=== PATIENT | female | born 1990 | race Caucasian/White ===

== ENCOUNTER 2017-11-23 11:55 | Emergency (ER) | payer OTHER ==
[2017-11-23 12:49] LABS: HEMATOCRIT 37.3 % (36.0-47.0); HEMOGLOBIN 12.9 g/dl (12.0-16.0); MEAN CORPUSCULAR HEMOGLOBIN 30.5 pg (27.0-33.0); MEAN CORPUSCULAR HGB CONC 34.6 g/dl (32.0-36.5); MEAN CORPUSCULAR VOLUME 88.2 fl (80.0-96.0); PLATELET COUNT, AUTOMATED 247 10^3/uL (150-450); RED BLOOD COUNT 4.23 10^6/uL (4.00-5.40); RED CELL DISTRIBUTION WIDTH 12.4 % (11.5-14.5); WHITE BLOOD COUNT 6.6 10^3/uL (4.0-10.0)
[2017-11-23 12:54] LABS: KETONE, URINE AUTO RFX NEGATIVE (NEGATIVE); LEUKOCYTE ESTERASE UR AUTO RFX NEGATIVE (NEGATIVE); MUCUS, URINE RFX LARGE (NEGATIVE); NITRITE, URINE AUTO RFX NEGATIVE (NEGATIVE); RBC, URINE AUTO RFX 0 /HPF (0-3); SPECIFIC GRAVITY UR AUTO RFX 1.018 (1.002-1.035); SQUAM EPITHELIAL CELL UR AURFX 2 /HPF (0-6); WBC, URINE AUTO RFX 2 /HPF (0-3)
[2017-11-23 13:13] LABS: ALBUMIN 3.8 GM/DL (3.2-5.2); ALBUMIN/GLOBULIN RATIO 1.09 (1.00-1.93); ALKALINE PHOSPHATASE 59 U/L (45-117); ALT/SGPT 28 U/L (12-78); AST/SGOT 19 U/L (7-37); BILIRUBIN,DIRECT 0.1 MG/DL (0.0-0.2); BILIRUBIN,TOTAL 0.4 MG/DL (0.2-1.0); HCG, SERUM QUANTITATIVE < 1.0 MIU/ML; TOTAL PROTEIN 7.3 GM/DL (6.4-8.2)
== END 2017-11-23 13:41 | disposition home or self-care (01) ==
LOC: M ED 11:55
DX: R10.2 Pelvic and perineal pain (principal); R35.0 Frequency of micturition; E28.2 Polycystic ovarian syndrome
CPT/HCPCS: 80076

== ENCOUNTER 2018-01-10 09:48 | Emergency (ER) | payer OTHER ==
[2018-01-10] MEDS: METOCLOPRAMIDE INJ 10MG/2ML VIAL (J2765) IV (10:31)
[2018-01-10] MEDS: NS 1,000 ML IV (10:31)
[2018-01-10 10:43] LABS: BASO % 0.4 % (0.0-1.0); EOS # 0.1 10^3/uL (0.0-0.50); EOS % 1.7 % (0.0-3.0); HEMATOCRIT 37.9 % (36.0-47.0); HEMOGLOBIN 12.7 g/dl (12.0-16.0); IMMATURE GRANULOCYTE % 0.4 % (0-3.0); LYMPH # 1.7 10^3/uL (1.5-6.5); LYMPH % 33.4 % (24.0-44.0); MEAN CORPUSCULAR HGB CONC 33.5 g/dl (32.0-36.5); MEAN CORPUSCULAR VOLUME 89.6 fl (80.0-96.0); MONO # 0.3 10^3/uL (0.0-0.8); NEUTROPHILS % 58.1 % (36.0-66.0); PLATELET COUNT, AUTOMATED 292 10^3/uL (150-450); RED BLOOD COUNT 4.23 10^6/uL (4.00-5.40); RED CELL DISTRIBUTION WIDTH 12.9 % (11.5-14.5); WHITE BLOOD COUNT 5.2 10^3/uL (4.0-10.0)
[2018-01-10 11:04] LABS: CONTROL LINE HCG INT CTR LINE PRESENT; HCG, SERUM QUALITATIVE NEGATIVE (NEGATIVE)
[2018-01-10 11:11] LABS: ALBUMIN 3.7 GM/DL (3.2-5.2); ALBUMIN/GLOBULIN RATIO 1.06 (1.00-1.93); ALKALINE PHOSPHATASE 64 U/L (45-117); ALT/SGPT 20 U/L (12-78); AMYLASE 43 U/L (25-115); ANION GAP 4 MEQ/L (8-16); AST/SGOT 12 U/L (7-37); BILIRUBIN,DIRECT 0.1 MG/DL (0.0-0.2); BILIRUBIN,TOTAL 0.3 MG/DL (0.2-1.0); BLOOD UREA NITROGEN 9 MG/DL (7-18); CALCIUM LEVEL 9.1 MG/DL (8.5-10.1); CARBON DIOXIDE LEVEL 30 MEQ/L (21-32); CHLORIDE LEVEL 107 MEQ/L (98-107); CREATININE FOR GFR 0.68 MG/DL (0.55-1.30); GLOMERULAR FILTRATION RATE > 60.0 (>60); GLUCOSE, FASTING 85 MG/DL (70-100); LIPASE 176 U/L (73-393); POTASSIUM SERUM 3.8 MEQ/L (3.5-5.1); SODIUM LEVEL 141 MEQ/L (136-145); TOTAL PROTEIN 7.2 GM/DL (6.4-8.2)
[2018-01-10 11:17] LABS: LACTIC ACID SEPSIS PROTOCOL 0.7 MMOL/L (0.4-2.0)
[2018-01-10 11:18] LABS: BILIRUBIN, URINE MANUAL OBSCURED (NEGATIVE); GLUCOSE, URINE (UA) MANUAL OBSCURED mg/dL (NEGATIVE); KETONE, URINE MANUAL OBSCURED mg/dL (NEGATIVE); NITRITE, URINE MANUAL RFX OBSCURED (NEGATIVE); PROTEIN, URINE MANUAL REFLEX OBSCURED mg/dL (NEGATIVE); SP GRAVITY,URINE MANUAL REFLEX 1.042 (1.002-1.035); UROBILINOGEN, URINE MANUAL OBSCURED mg/dl (NORMAL)
[2018-01-10 11:19] LABS: BACTERIA, URINE SMALL AMOUNT; BLOOD URINE MANUAL RFX OBSCURED (NEGATIVE); HYALINE CAST, URINE NONE SEEN /lpf (0-1); MICROSCOPIC EXAM PERFORMED; MICROSCOPIC INDICATED? RFX YES (NO); MUCUS, URINE MOD AMOUNT (NEGATIVE); RBC, URINE TNTC /hpf (0-3); SQUAMOUS EPITHELIAL CELL URINE LARGE AMOUNT /hpf (SMALL AMT); WBC, URINE MAN RFX TNTC /hpf (0-3)
== END 2018-01-10 11:32 | disposition left against medical advice (07) ==
LOC: M ED 09:48
DX: R10.9 Unspecified abdominal pain (principal); R11.2 Nausea with vomiting, unspecified; K59.00 Constipation, unspecified; E28.2 Polycystic ovarian syndrome; N92.6 Irregular menstruation, unspecified; Z98.0 Intestinal bypass and anastomosis status
CPT/HCPCS: J2765

== ENCOUNTER → 2018-02-21 | Outpatient (REF) | payer OTHER ==
[2018-02-22 12:23] LABS: APPEARANCE, URINE CLOUDY (CLEAR); BACTERIA, URINE AUTO 2+ (NEGATIVE); BILIRUBIN, URINE AUTO NEGATIVE (NEGATIVE); BLOOD, URINE BLOOD NEGATIVE (NEGATIVE); COLOR, URINE YELLOW (YELLOW); GLUCOSE, URINE (UA) AUTO NEGATIVE (NEGATIVE); KETONE, URINE AUTO NEGATIVE (NEGATIVE); LEUKOCYTE ESTERASE, URINE AUTO NEGATIVE (NEGATIVE); MUCUS, URINE MODERATE (NEGATIVE); NITRITE, URINE AUTO NEGATIVE (NEGATIVE); PROTEIN, URINE AUTO NEGATIVE (NEGATIVE); RBC, URINE AUTO 2 /HPF (0-3); SQUAMOUS EPITHELIAL CELL UR AU 9 /HPF (0-6); UROBILINOGEN, URINE AUTO 0.2 mg/dL (0.0-2.0); WBC, URINE AUTO 5 /HPF (0-3)
== END ==
LOC: M LAB REF 11:29
DX: Z32.02 Encounter for pregnancy test, result negative (principal)
CPT/HCPCS: 81001

== ENCOUNTER → 2018-03-19 | Outpatient (REF) | payer OTHER | LOC: M SFHCLERA 14:10 | DX: R30.0 Dysuria (principal) ==

== ENCOUNTER 2018-04-27 11:25 | Emergency (ER) | payer OTHER ==
[2018-04-27] MEDS: ASPIRIN 81 MG CHEW TABLET PO (12:39)
[2018-04-27 13:26] LABS: BASO % 0.6 % (0.0-1.0); EOS # 0.1 10^3/uL (0.0-0.50); EOS % 2.4 % (0.0-3.0); HEMATOCRIT 32.8 % (36.0-47.0); HEMOGLOBIN 11.6 g/dl (12.0-15.5); MEAN CORPUSCULAR HEMOGLOBIN 31.2 pg (27.0-33.0); MEAN CORPUSCULAR HGB CONC 35.4 g/dl (32.0-36.5); MEAN CORPUSCULAR VOLUME 88.2 fl (80.0-96.0); MONO # 0.4 10^3/uL (0.0-0.8); MONO % 8.4 % (0.0-5.0); NEUTROPHILS # 2.2 10^3/uL (1.8-7.7); NEUTROPHILS % 46.6 % (36.0-66.0); PLATELET COUNT, AUTOMATED 222 10^3/uL (150-450); RED BLOOD COUNT 3.72 10^6/uL (4.00-5.40); RED CELL DISTRIBUTION WIDTH 11.5 % (11.5-14.5); WHITE BLOOD COUNT 4.7 10^3/uL (4.0-10.0)
[2018-04-27 13:37] LABS: INR 1.04; PROTHROMBIN TIME 13.7 SECONDS (12.4-14.5)
[2018-04-27 13:38] LABS: PARTIAL THROMBOPLASTIN TIME 29.2 SECONDS (26.8-37.9)
[2018-04-27 14:00] LABS: CONTROL LINE HCG INT CTR LINE PRESENT; HCG, SERUM QUALITATIVE NEGATIVE (NEGATIVE)
[2018-04-27 14:04] LABS: ALBUMIN 3.5 GM/DL (3.2-5.2); ALBUMIN/GLOBULIN RATIO 1.03 (1.00-1.93); ALKALINE PHOSPHATASE 55 U/L (45-117); ALT/SGPT 19 U/L (12-78); ANION GAP 9 MEQ/L (8-16); AST/SGOT 12 U/L (7-37); BILIRUBIN,DIRECT 0.1 MG/DL (0.0-0.2); BILIRUBIN,TOTAL 0.4 MG/DL (0.2-1.0); BLOOD UREA NITROGEN 11 MG/DL (7-18); CALCIUM LEVEL 8.3 MG/DL (8.5-10.1); CARBON DIOXIDE LEVEL 23 MEQ/L (21-32); CHLORIDE LEVEL 110 MEQ/L (98-107); CPK CREATINE PHOSPHOKINASE 39 U/L (26-192); CREATININE FOR GFR 0.57 MG/DL (0.55-1.30); FREE T4 1.08 NG/DL (0.76-1.46); GLOMERULAR FILTRATION RATE > 60.0 (>60); GLUCOSE, FASTING 85 MG/DL (70-100); POTASSIUM SERUM 3.7 MEQ/L (3.5-5.1); SODIUM LEVEL 142 MEQ/L (136-145); TOTAL PROTEIN 6.9 GM/DL (6.4-8.2); TROPONIN I < 0.02 NG/ML (< 0.10)
[2018-04-27 14:10] LABS: CK-MB VALUE MASS < 1.0 NG/ML (<3.6); MB/CK RELATIVE INDEX 2.56 (< OR =4); THYROID STIMULATING HORMONE 0.905 uIU/ML (0.358-3.740)
[2018-04-27] MEDS ORDERED: ISOVUE-370 76% 100ML VIAL (Q9967) As Ordered (14:38)
[2018-04-27 15:11] LABS: D-DIMER QUANT 395.9 ng/ml (<500)
== END 2018-04-27 16:20 | disposition left against medical advice (07) ==
LOC: M ED 11:25
DX: R07.9 Chest pain, unspecified (principal); R00.1 Bradycardia, unspecified; I10 Essential (primary) hypertension; K25.9 Gastric ulcer, unspecified as acute or chronic, without hemorrhage or perforation; E28.2 Polycystic ovarian syndrome; Z98.84 Bariatric surgery status; Z79.899 Other long term (current) drug therapy; Z88.5 Allergy status to narcotic agent; Z53.21 Procedure and treatment not carried out due to patient leaving prior to being seen by health care provider
CPT/HCPCS: 71046

== ENCOUNTER → 2018-05-02 | Outpatient (CLI) | payer OTHER ==
[~2018-05-02] MED LIST: ISOVUE-370 76% 100ML VIAL (Q9967) As Ordered; LIDOCAINE 1% MDV 20ML VIAL As Ordered
== END ==
LOC: M RAD 17:16
DX: R19.07 Generalized intra-abdominal and pelvic swelling, mass and lump (principal)
CPT/HCPCS: Q9967

== ENCOUNTER 2018-05-04 13:23 | Inpatient (IN) | payer OTHER ==
[~2018-05-04 13:23] MED LIST changes: +BISACODYL 10 MG SUPP PR; -ISOVUE-370 76% 100ML VIAL (Q9967) As Ordered; -LIDOCAINE 1% MDV 20ML VIAL As Ordered; +ONDANSETRON 4MG/2ML VIAL (J2405) IV
[2018-05-04] MEDS ORDERED: ISOVUE-370 76% 100ML VIAL (Q9967) As Ordered (14:14)
[2018-05-04] MEDS: KCL 20MEQ IN D5/NS 1000ML 1,000 ML IV (14:41)
[2018-05-04 15:28] LABS: BASO % 0.6 % (0.0-1.0); EOS # 0.1 10^3/uL (0.0-0.50); EOS % 1.6 % (0.0-3.0); HEMATOCRIT 35.4 % (36.0-47.0); IMMATURE GRANULOCYTE % 0.2 % (0-3.0); LYMPH # 2.3 10^3/uL (1.5-6.5); LYMPH % 45.1 % (24.0-44.0); MEAN CORPUSCULAR HEMOGLOBIN 30.8 pg (27.0-33.0); MEAN CORPUSCULAR HGB CONC 33.9 g/dl (32.0-36.5); MONO # 0.3 10^3/uL (0.0-0.8); MONO % 6.7 % (0.0-5.0); NEUTROPHILS # 2.3 10^3/uL (1.8-7.7); NEUTROPHILS % 45.8 % (36.0-66.0); PLATELET COUNT, AUTOMATED 229 10^3/uL (150-450); RED BLOOD COUNT 3.89 10^6/uL (4.00-5.40); RED CELL DISTRIBUTION WIDTH 11.7 % (11.5-14.5); WHITE BLOOD COUNT 5.1 10^3/uL (4.0-10.0)
[2018-05-04 15:45] LABS: ALBUMIN 3.7 GM/DL (3.2-5.2); ALBUMIN/GLOBULIN RATIO 1.12 (1.00-1.93); ALKALINE PHOSPHATASE 60 U/L (45-117); ALT/SGPT 23 U/L (12-78); ANION GAP 5 MEQ/L (8-16); AST/SGOT 9 U/L (7-37); BILIRUBIN,TOTAL 0.4 MG/DL (0.2-1.0); BLOOD UREA NITROGEN 9 MG/DL (7-18); CALCIUM LEVEL 8.5 MG/DL (8.5-10.1); CARBON DIOXIDE LEVEL 32 MEQ/L (21-32); CHLORIDE LEVEL 107 MEQ/L (98-107); CHOLESTEROL LEVEL 133 MG/DL (< 200); CPK CREATINE PHOSPHOKINASE 73 U/L (26-192); CREATININE FOR GFR 0.64 MG/DL (0.55-1.30); GLOMERULAR FILTRATION RATE > 60.0 (>60); GLUCOSE, FASTING 80 MG/DL (70-100); LDH LACTATE DEHYDROGENASE 118 U/L (84-246); PHOSPHORUS LEVEL 3.6 MG/DL (2.5-4.9); SODIUM LEVEL 144 MEQ/L (136-145); TRIGLYCERIDES LEVEL 85 MG/DL (<150)
[2018-05-04] MEDS: ACETAMINOPHEN TAB 650MG DOSE (2X325MG) PO (15:51)
[2018-05-04 16:17] LABS: T UPTAKE 36 % (30-39); THYROXINE (T4) 8.4 UG/DL (4.5-12.0)
[2018-05-04] MEDS: PANTOPRAZOLE 40MG TAB (PROTONIX) PO (17:55)
[2018-05-04] MEDS: NORCO, ANEXSIA 5/325MG TABLET (HYDROcodone/ACETAMINOPHEN) PO (17:55)
[2018-05-04] MEDS: HEPARIN SOD (PORCINE) 5000 UNITS/ML VIAL SC (20:52)
[2018-05-04] MEDS: PERCOCET 5MG/325MG TAB PO (20:52)
[2018-05-04] MEDS ORDERED: ONDANSETRON 4 MG ORAL DISINTEGRATING TAB (Q0162 PER 1MG) PO (21:30)
[2018-05-05] MEDS: zolPIDEM TARTRATE 5 MG TAB PO (00:03)
[2018-05-05] MEDS: KCL 20MEQ IN D5/NS 1000ML 1,000 ML IV (01:41)
[2018-05-05 06:00] LABS: BASO % 0.6 % (0.0-1.0); EOS # 0.1 10^3/uL (0.0-0.50); EOS % 2.6 % (0.0-3.0); HEMATOCRIT 33.5 % (36.0-47.0); HEMOGLOBIN 11.3 g/dl (12.0-15.5); IMMATURE GRANULOCYTE % 0.2 % (0-3.0); LYMPH # 2.5 10^3/uL (1.5-6.5); MEAN CORPUSCULAR HEMOGLOBIN 30.8 pg (27.0-33.0); MEAN CORPUSCULAR HGB CONC 33.7 g/dl (32.0-36.5); MEAN CORPUSCULAR VOLUME 91.3 fl (80.0-96.0); MONO # 0.4 10^3/uL (0.0-0.8); MONO % 8.4 % (0.0-5.0); NEUTROPHILS # 1.9 10^3/uL (1.8-7.7); NEUTROPHILS % 37.2 % (36.0-66.0); PLATELET COUNT, AUTOMATED 207 10^3/uL (150-450); RED BLOOD COUNT 3.67 10^6/uL (4.00-5.40); RED CELL DISTRIBUTION WIDTH 11.8 % (11.5-14.5)
[2018-05-05 06:18] LABS: ANION GAP 7 MEQ/L (8-16); BLOOD UREA NITROGEN 10 MG/DL (7-18); CALCIUM LEVEL 8.5 MG/DL (8.5-10.1); CARBON DIOXIDE LEVEL 28 MEQ/L (21-32); CHLORIDE LEVEL 110 MEQ/L (98-107); CREATININE FOR GFR 0.68 MG/DL (0.55-1.30); GLOMERULAR FILTRATION RATE > 60.0 (>60); GLUCOSE, FASTING 85 MG/DL (70-100); POTASSIUM SERUM 3.7 MEQ/L (3.5-5.1); SODIUM LEVEL 145 MEQ/L (136-145)
[2018-05-05] MEDS: PANTOPRAZOLE 40MG TAB (PROTONIX) PO (08:10)
[2018-05-05] MEDS: ACETAMINOPHEN TAB 650MG DOSE (2X325MG) PO (08:10)
[2018-05-05] MEDS: HEPARIN SOD (PORCINE) 5000 UNITS/ML VIAL SC (08:10)
== END 2018-05-05 10:45 | disposition home or self-care (01) | DRG 204 ==
LOC: M PCU 13:23
PROC: 0WBC3ZX Excision of Mediastinum, Percutaneous Approach, Diagnostic (ICD-10-PCS; principal; 2018-05-04)
DX: R91.8 Other nonspecific abnormal finding of lung field (principal); F41.9 Anxiety disorder, unspecified

== ENCOUNTER → 2018-06-09 | Outpatient (REF) | payer OTHER | LOC: M LAB REF 17:16 | DX: R89.6 Abnormal cytological findings in specimens from other organs, systems and tissues (principal) ==

== ENCOUNTER → 2018-08-15 | Outpatient (CLI) | payer OTHER ==
[~2018-08-15] MED LIST changes: -BISACODYL 10 MG SUPP PR; +ISOVUE-370 76% 100ML VIAL (Q9967) As Ordered; -ONDANSETRON 4MG/2ML VIAL (J2405) IV
== END ==
LOC: M RAD 17:28
DX: E04.2 Nontoxic multinodular goiter (principal); R59.0 Localized enlarged lymph nodes
CPT/HCPCS: Q9967

== ENCOUNTER → 2018-09-08 | Outpatient (REF) | payer OTHER | LOC: M SFHCLERA 17:56 | DX: J02.9 Acute pharyngitis, unspecified (principal) ==

== ENCOUNTER → 2018-12-19 | Outpatient (REF) | payer OTHER ==
[~2018-12-19] MED LIST changes: +CIPR-249 PO; +DRIS50003 PO; -ISOVUE-370 76% 100ML VIAL (Q9967) As Ordered; +NORCOTAB PO; +[UNRECOGNIZED DRUG - CODE] PO
== END ==
LOC: M SFHCLERA 19:59
PROVIDERS: ATTEND Nurse Practitioner Family
DX: R68.89 Other general symptoms and signs (principal)

== ENCOUNTER 2018-12-23 11:59 | Emergency (ER) | payer OTHER, SELFPAY ==
[~2018-12-23] VITALS: Ht 180.3 cm; Wt 104.5 kg
[~2018-12-23 11:59] MED LIST changes: +HYDR-3715 PO; -NORCOTAB PO
[2018-12-23] MEDS ORDERED: APAP500T10 PO (12:09)
[2018-12-23] MEDS ORDERED: IBUP-1022 PO (12:09)
[2018-12-23] MEDS ORDERED: NYQU1CAP PO (12:09)
[2018-12-23] MEDS ORDERED: LIDOCAINE 1% SDV 5 ML VIAL DILUENT ONE (14:00)
[2018-12-23] MEDS ORDERED: MUCI600T37 PO (14:00)
[2018-12-23] MEDS ORDERED: BENZ200C70 PO (14:00)
[2018-12-23] MEDS ORDERED: ZITHTAB PO (14:00)
[2018-12-23] MEDS ORDERED: cefTRIAXone SOD 1 GM VIAL (J0696) IM ONE (14:00)
[2018-12-23] MEDS ORDERED: CEFU50TA PO (14:00)
--- NOTE | 2018-12-23 14:05 | REP ---
CHEST PA AND LATERAL: 12/23/2018. COMPARISON: Chest x-ray 05/05/2018, CT 05/04/2018. CLINICAL HISTORY: Cough, fever, and hemoptysis. 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 Two views show the lung espino well inflated. There is no effusion, lateral pleural thickening, or apical scarring. I do not see the displaced paraspinal line from the mediastinal mass noted on the previous chest x-ray and CT in April 26, 2018. There is a subtle increase in retrocardiac left lower lobe density that may reflect a patchy zone of atelectasis or infiltrate compared to the previous chest x-ray. No other significant finding, the hilar contours symmetric and normal. Bones intact. No free air under the diaphragm. IMPRESSION: 1. Patchy retrocardiac left lower lobe area subsegmental atelectasis or early infiltrate, a change in appearance from the April 2018 study. No effusion. 2. The paraspinal line displacement from the anterior mediastinal mass seen on the CT 05/04/2018 is no longer present. No widening of the mediastinum. No other significant finding. Electronically Signed by Sky Roberts MD 12/23/2018 07:52 P
[2018-12-23 14:13] VITALS: BP 121/79
--- NOTE | 2019-01-01 07:41 | ED PDOC ---
Post-Departure Follow-Up certified letter sent to pt re formal read of cxr for fu Sue Perkins MD Jan 01, 2019 07:41
== END 2018-12-23 14:34 | disposition home or self-care (01) ==
LOC: M ED 11:59
DX: J18.1 Lobar pneumonia, unspecified organism (principal); Z98.84 Bariatric surgery status; I25.2 Old myocardial infarction; E28.2 Polycystic ovarian syndrome; Z79.899 Other long term (current) drug therapy; Z88.5 Allergy status to narcotic agent
CPT/HCPCS: 71046; 96372; 99283; J0696

== ENCOUNTER 2019-07-01 08:44 | Emergency (ER) | payer OTHER, SELFPAY ==
[~2019-07-01 08:44] MED LIST changes: +APAP500T10 PO; +BENZ200C70 PO; +CEFU50TA PO; +IBUP-1022 PO; +MUCI600T37 PO; +NYQU1CAP PO; +ZITHTAB PO
[2019-07-01 09:23] LABS: BASO % 0.5 % (0.0-1.0); EOS # 0.1 10^3/uL (0.0-0.50); HEMATOCRIT 36.7 % (36.0-47.0); HEMOGLOBIN 12.5 g/dl (12.0-15.5); LYMPH # 1.9 10^3/uL (1.5-6.5); LYMPH % 29.1 % (24.0-44.0); MEAN CORPUSCULAR HEMOGLOBIN 30.9 pg (27.0-33.0); MEAN CORPUSCULAR HGB CONC 34.1 g/dl (32.0-36.5); MEAN CORPUSCULAR VOLUME 90.8 fl (80.0-96.0); MONO # 0.5 10^3/uL (0.0-0.8); MONO % 7.1 % (0.0-5.0); NEUTROPHILS # 3.9 10^3/uL (1.8-7.7); NEUTROPHILS % 60.8 % (36.0-66.0); PLATELET COUNT, AUTOMATED 225 10^3/uL (150-450); RED BLOOD COUNT 4.04 10^6/uL (4.00-5.40); WHITE BLOOD COUNT 6.5 10^3/uL (4.0-10.0)
[2019-07-01 09:39] LABS: HCG, SERUM QUALITATIVE NEGATIVE (NEGATIVE)
[2019-07-01 09:42] LABS: INR 1.02; PROTHROMBIN TIME 13.1 SECONDS (11.8-14.0)
[2019-07-01] MEDS ORDERED: NORCO, ANEXSIA 5/325MG TABLET (HYDROcodone/ACETAMINOPHEN) PO ONE (09:45)
[2019-07-01 09:46] LABS: ERYTHROCYTE SEDIMENTATION RATE 17 mm/hr (0-20)
[2019-07-01 09:54] LABS: ALBUMIN 3.6 GM/DL (3.2-5.2); ALT/SGPT 16 U/L (12-78); BILIRUBIN,DIRECT 0.1 MG/DL (0.0-0.2); BILIRUBIN,TOTAL 0.4 MG/DL (0.2-1.0); BLOOD UREA NITROGEN 11 MG/DL (7-18); CALCIUM LEVEL 8.6 MG/DL (8.5-10.1); CARBON DIOXIDE LEVEL 26 MEQ/L (21-32); CHLORIDE LEVEL 110 MEQ/L (98-107); CK-MB VALUE MASS < 1.0 NG/ML (<3.6); CPK CREATINE PHOSPHOKINASE 54 U/L (26-192); CREATININE FOR GFR 0.59 MG/DL (0.55-1.30); GLOMERULAR FILTRATION RATE > 60.0 (>60); GLUCOSE, FASTING 81 MG/DL (70-100); LIPASE 111 U/L (73-393); MB/CK RELATIVE INDEX 1.85 (< OR =4); NT-PRO BNP 59 PG/ML (<125); POTASSIUM SERUM 3.9 MEQ/L (3.5-5.1); SODIUM LEVEL 142 MEQ/L (136-145); TOTAL PROTEIN 6.9 GM/DL (6.4-8.2); TROPONIN I < 0.02 NG/ML (< 0.10)
[2019-07-01] MEDS ORDERED: ISOVUE-370 76% 100ML VIAL (Q9967) As Ordered ONE (10:01)
--- NOTE | 2019-07-01 10:52 | REP ---
CT of the chest with IV contrast, CT pulmonary angiography protocol: Comparison is 05/04/2018. There are no emboli in the pulmonary trunk or central pulmonary arteries. There are no emboli in the pulmonary artery lobe or segment branches. There are no infiltrates or pleural effusions. There are no masses or nodules. On the prior study there was a large anterior mediastinal mass. This is no longer present. There is no mediastinal or hilar adenopathy. There is no axillary adenopathy. The thoracic aorta is R. Cardiac size is normal. There is no pericardial effusion. The visualized upper abdominal contents are unremarkable. Impression: There are no pulmonary emboli. Otherwise, essentially negative CT study of the chest. The large anterior mediastinal mass identified on the comparison study is no longer present. Electronically Signed by Pablo Potrer MD 07/01/2019 10:28 A
[2019-07-01 11:45] VITALS: BP 98/71
--- NOTE | 2019-07-02 19:59 | ECGEPIP ---
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
--- NOTE | 2019-07-03 08:10 | REP ---
Portable chest, 09:11 a.m., single AP view with the patient upright: Comparison is 12/23/2018. The lung espino are clear. The cardiac size is normal. The rebeca, mediastinum, and skeletal structures are unremarkable. Impression: Negative portable chest. There is no interval change. Electronically Signed by Pablo Porter MD 07/01/2019 12:53 P
== END 2019-07-01 11:47 | disposition home or self-care (01) ==
LOC: EDBD 08:44 → M ED 08:44
DX: R07.89 Other chest pain (principal); R06.02 Shortness of breath; F31.9 Bipolar disorder, unspecified; D68.51 Activated protein C resistance
CPT/HCPCS: 36415; 71045; 71275; 80048; 80076; 82550; 82553; 83690; 83880; 84443; 84484; 84703; 85025; 85610; 85652; 93005; 93041; 94760; 99285; Q9967

== ENCOUNTER → 2019-08-11 | Outpatient (REF) | payer OTHER, SELFPAY ==
[2019-08-12 21:38] LABS: CHLAMYDIA DNA AMPLIFICATION NEGATIVE (NEGATIVE); GC DNA AMPLIFICATION POSITIVE (NEGATIVE)
== END ==
LOC: M SFHCLERA 18:31
PROVIDERS: ATTEND Physician Assistant
DX: J02.9 Acute pharyngitis, unspecified (principal)
CPT/HCPCS: 81002; 81025; 87086; 87661; 87880; G0463

== ENCOUNTER → 2019-09-02 | Outpatient (REF) | payer OTHER | LOC: M SFHCLERA 14:02 | PROVIDERS: ATTEND Physician Assistant | DX: J02.9 Acute pharyngitis, unspecified (principal) ==

== ENCOUNTER → 2019-09-16 | Outpatient (REF) | payer OTHER ==
[2019-09-16 20:13] LABS: CHLAMYDIA DNA AMPLIFICATION NEGATIVE (NEGATIVE); GC DNA AMPLIFICATION POSITIVE (NEGATIVE)
== END ==
LOC: M SFHCLERA 16:34
PROVIDERS: ATTEND Nurse Practitioner Family
DX: Z20.2 Contact with and (suspected) exposure to infections with a predominantly sexual mode of transmission (principal)
CPT/HCPCS: 81002; 81025; 87086; 87661; G0463

== ENCOUNTER → 2019-12-04 | Outpatient (REF) | payer OTHER ==
[2019-12-04 19:24] LABS: CHLAMYDIA DNA AMPLIFICATION NEGATIVE (NEGATIVE); GC DNA AMPLIFICATION NEGATIVE (NEGATIVE)
== END ==
LOC: M SFHCLERA 14:13
PROVIDERS: ATTEND Nurse Practitioner Family
DX: N89.8 Other specified noninflammatory disorders of vagina (principal)
CPT/HCPCS: 81002; 81025; 87070; 87077; 87088; 87186; 87661; G0463

== ENCOUNTER → 2019-12-26 | Outpatient (REF) | payer OTHER ==
[2019-12-26 22:26] LABS: CHLAMYDIA DNA AMPLIFICATION NEGATIVE (NEGATIVE); GC DNA AMPLIFICATION NEGATIVE (NEGATIVE)
== END ==
LOC: M SFHCLERA 13:52
PROVIDERS: ATTEND Nurse Practitioner Family
DX: R30.0 Dysuria (principal)
CPT/HCPCS: 81002; 81025; 87088; 87186; 87661; G0463

== ENCOUNTER → 2020-01-01 | Outpatient (REF) | payer OTHER ==
[2020-01-01 21:10] LABS: APPEARANCE, URINE CLOUDY (CLEAR); BACTERIA, URINE AUTO 1+ (NEGATIVE); BILIRUBIN, URINE AUTO NEGATIVE (NEGATIVE); BLOOD, URINE BLOOD 1+ (NEGATIVE); COLOR, URINE AMBER (YELLOW); GLUCOSE, URINE (UA) AUTO NEGATIVE (NEGATIVE); KETONE, URINE AUTO NEGATIVE (NEGATIVE); LEUKOCYTE ESTERASE, URINE AUTO 1+ (NEGATIVE); MUCUS, URINE SMALL (NEGATIVE); NITRITE, URINE AUTO POSITIVE (NEGATIVE); PROTEIN, URINE AUTO NEGATIVE (NEGATIVE); RBC, URINE AUTO 10 /HPF (0-3); SQUAMOUS EPITHELIAL CELL UR AU 12 /HPF (0-6); WBC, URINE AUTO 27 /HPF (0-3)
[2020-01-02 06:44] LABS: CHLAMYDIA DNA AMPLIFICATION NEGATIVE (NEGATIVE); GC DNA AMPLIFICATION NEGATIVE (NEGATIVE)
== END ==
LOC: M LAB REF 20:13 → M LAB 20:13
PROVIDERS: ATTEND Physician Assistant Medical
DX: Z11.3 Encounter for screening for infections with a predominantly sexual mode of transmission (principal); N39.0 Urinary tract infection, site not specified

== ENCOUNTER → 2020-01-22 | Outpatient (REF) | payer OTHER | LOC: M LAB REF 19:35 | PROVIDERS: ATTEND Physician Assistant Medical | DX: J11.1 Influenza due to unidentified influenza virus with other respiratory manifestations (principal) ==

== ENCOUNTER → 2020-03-24 | Outpatient (REF) | payer OTHER | LOC: M SFHCLERA 16:49 | PROVIDERS: ATTEND Nurse Practitioner Family | DX: R68.89 Other general symptoms and signs (principal) | CPT/HCPCS: 87804; G0463; U0003 ==

== ENCOUNTER → 2020-04-03 | Outpatient (REF) | payer OTHER ==
[2020-04-03 16:53] LABS: CHLAMYDIA DNA AMPLIFICATION NEGATIVE (NEGATIVE); GC DNA AMPLIFICATION NEGATIVE (NEGATIVE)
== END ==
LOC: M LAB REF 12:45
PROVIDERS: ATTEND Physician Assistant
DX: Z11.3 Encounter for screening for infections with a predominantly sexual mode of transmission (principal)

== ENCOUNTER 2020-06-21 17:11 | Emergency (ER) | payer OTHER ==
[2020-06-21] MEDS ORDERED: AZITHROMYCIN 250MG TABLET ONE (18:15)
[2020-06-21] MEDS ORDERED: cefTRIAXone SOD 250MG VIAL (J0696 PER 250MG) As Ordered ONE (18:15)
[2020-06-21] MEDS ORDERED: LIDOCAINE 1% SDV 5ML VIAL ONE (18:15)
[2020-06-21] MEDS ORDERED: AZITHROMYCIN 250MG TABLET As Ordered ONE (18:15)
[2020-06-21] MEDS ORDERED: cefTRIAXone SOD 250MG VIAL (J0696 PER 250MG) ONE (18:15)
[2020-06-21] MEDS ORDERED: LIDOCAINE 1% SDV 5ML VIAL As Ordered ONE (18:16)
[2020-07-22 14:50] LABS: CHLAMYDIA DNA AMPLIFICATION NEGATIVE (NEGATIVE); GC DNA AMPLIFICATION NEGATIVE (NEGATIVE)
[2020-08-04 12:38] LABS: APPEARANCE, URINE MANUAL CLEAR (CLEAR); BILIRUBIN, URINE MANUAL NEGATIVE (NEGATIVE); BLOOD URINE MANUAL NEGATIVE (NEGATIVE); COLOR, URINE MANUAL LT YELLOW (YELLOW); GLUCOSE, URINE (UA) MANUAL NEGATIVE (NEGATIVE); KETONE, URINE MANUAL NEGATIVE (NEGATIVE); LEUKOCYTE ESTERASE, URINE MAN NEGATIVE (NEGATIVE); NITRITE, URINE MANUAL NEGATIVE (NEGATIVE); PROTEIN, URINE MANUAL NEGATIVE (NEGATIVE); SPECIFIC GRAVITY,URINE MANUAL 1.005 (1.002-1.035); UROBILINOGEN, URINE MANUAL NORMAL (NORMAL)
[2020-08-04 20:32] LABS: BASO % 0.4 % (0.0-1.0); EOS # 0.1 10^3/uL (0.0-0.5); EOS % 1.7 % (0.0-3.0); HEMATOCRIT 38.6 % (36.0-47.0); HEMOGLOBIN 13.1 g/dl (12.0-15.5); LYMPH # 2.3 10^3/uL (1.5-5.0); LYMPH % 31.1 % (24.0-44.0); MEAN CORPUSCULAR HEMOGLOBIN 30.8 pg (27.0-33.0); MEAN CORPUSCULAR HGB CONC 33.9 g/dl (32.0-36.5); MEAN CORPUSCULAR VOLUME 90.8 fl (80.0-96.0); MONO # 0.5 10^3/uL (0.0-0.8); MONO % 6.8 % (0.0-5.0); NEUTROPHILS # 4.4 10^3/uL (1.5-8.5); NEUTROPHILS % 59.7 % (36.0-66.0); PLATELET COUNT, AUTOMATED 259 10^3/uL (150-450); RED BLOOD COUNT 4.25 10^6/uL (4.00-5.40); WHITE BLOOD COUNT 7.5 10^3/uL (4.0-10.0)
[2020-09-14 11:49] LABS: BLOOD UREA NITROGEN 9 MG/DL (7-18); CALCIUM LEVEL 8.9 MG/DL (8.5-10.1); CARBON DIOXIDE LEVEL 27 MEQ/L (21-32); CHLORIDE LEVEL 110 MEQ/L (98-107); CREATININE FOR GFR 0.67 MG/DL (0.55-1.30); GLOMERULAR FILTRATION RATE > 60.0 (>60); GLUCOSE, FASTING 87 MG/DL (70-100); POTASSIUM SERUM 4.3 MEQ/L (3.5-5.1); SODIUM LEVEL 142 MEQ/L (136-145)
[2020-09-14 12:02] LABS: HCG, SERUM QUALITATIVE NEGATIVE (NEGATIVE)
== END 2020-06-21 18:30 | disposition home or self-care (01) ==
LOC: M ED 17:11
DX: A59.9 Trichomoniasis, unspecified (principal); R30.0 Dysuria; Z98.84 Bariatric surgery status
CPT/HCPCS: 80048; 81002; 84703; 85025; 87210; 87255; 87661; 96372; 99283; J0696

== ENCOUNTER → 2020-07-16 | Outpatient (REF) | payer OTHER ==
[~2020-07-16] MED LIST changes: +ACET-683 PO; +CETI-24 PO
[2020-07-17 13:25] LABS: CHLAMYDIA DNA AMPLIFICATION NEGATIVE (NEGATIVE); GC DNA AMPLIFICATION NEGATIVE (NEGATIVE)
== END ==
LOC: M WUC 18:24
PROVIDERS: ATTEND Nurse Practitioner Family
DX: N76.0 Acute vaginitis (principal)

== ENCOUNTER 2020-07-31 10:44 | Emergency (ER) | payer OTHER ==
[~2020-07-31] VITALS: Ht 180.3 cm; Wt 120.9 kg
[~2020-07-31 10:44] MED LIST changes: -ACET-683 PO; -CETI-24 PO
[2020-07-31 10:45] VITALS: BP 128/79
[2020-07-31] MEDS ORDERED: CETI-24 PO (10:54)
== END 2020-07-31 11:54 | disposition left against medical advice (07) ==
LOC: M ED 10:44
DX: Z53.20 Procedure and treatment not carried out because of patient's decision for unspecified reasons (principal); L29.2 Pruritus vulvae; Z98.84 Bariatric surgery status

== ENCOUNTER 2020-09-02 19:56 | Emergency (ER) | payer OTHER ==
[~2020-09-02] VITALS: Ht 180.3 cm; Wt 100.9 kg
[~2020-09-02 19:56] MED LIST changes: +CETI-24 PO
[2020-09-02 20:02] VITALS: BP 120/64
[2020-09-02] MEDS ORDERED: ACET-683 PO (20:13)
--- NOTE | 2020-09-02 20:40 | REPVR ---
PROCEDURE INFORMATION: Exam: XR Right Forearm Exam date and time: 09/02/2020 8:05 PM Age: 29 years old Clinical indication: Pain; Lower or forearm; Right; Additional info: Injured arm while lifting tv TECHNIQUE: Imaging protocol: XR Right forearm. Views: 2 views. COMPARISON: CR Forearm Radius,[place] 04/17/2018 10:55 PM FINDINGS: Bones/joints: Normal. Soft tissues: Normal. IMPRESSION: No acute findings. Electronically signed by: Tim Monge On 09/02/2020 20:40:16 PM
--- NOTE | 2020-09-02 20:40 | REPVR ---
PROCEDURE INFORMATION: Exam: XR Right Wrist Exam date and time: 09/02/2020 8:05 PM Age: 29 years old Clinical indication: Pain; Wrist; Right; Additional info: Injured arm while lifting tv TECHNIQUE: Imaging protocol: XR Right wrist. Views: 3 or more views. COMPARISON: CR Wrist, complete 04/17/2018 10:55 PM FINDINGS: Bones/joints: Normal. Soft tissues: Normal. IMPRESSION: No acute findings. Electronically signed by: Tim Monge On 09/02/2020 20:41:15 PM
[2020-09-02] MEDS ORDERED: ACETAMINOPHEN 325 MG TAB PO ONE (20:45)
== END 2020-09-02 20:58 | disposition home or self-care (01) ==
LOC: M ED 19:56
DX: S63.501A Unspecified sprain of right wrist, initial encounter (principal); W22.8XXA Striking against or struck by other objects, initial encounter; Y92.019 Unspecified place in single-family (private) house as the place of occurrence of the external cause; Y93.9 Activity, unspecified; Z88.6 Allergy status to analgesic agent

== ENCOUNTER → 2020-09-07 | Outpatient (REF) | payer OTHER ==
[~2020-09-07] MED LIST changes: +ACET-683 PO
== END ==
LOC: M LAB REF 09:38
PROVIDERS: ATTEND Physician Assistant
DX: N76.0 Acute vaginitis (principal)

== ENCOUNTER 2020-10-01 02:00 | Emergency (ER) | payer OTHER ==
[~2020-10-01] VITALS: Ht 180.3 cm; Wt 104.5 kg
[2020-10-01 02:00] VITALS: BP 131/82
[2020-10-01] MEDS ORDERED: ARIP1TAB6 PO (02:32)
[2020-10-01] MEDS ORDERED: AMPH1CAP15 PO (02:32)
[2020-10-01] MEDS ORDERED: ZOLP10TA2 PO (02:32)
[2020-10-01] MEDS ORDERED: ONDANSETRON 4 MG ORAL DISINTEGRATING TAB PO ONE (03:15)
[2020-10-01 04:02] LABS: INFLUENZA A AMPLIFICATION NEGATIVE (NEGATIVE); INFLUENZA B AMPLIFICATION NEGATIVE (NEGATIVE)
== END 2020-10-01 04:37 | disposition left against medical advice (07) ==
LOC: M ED 02:00 → EEVIPCON 02:00 → M ED 04:37
DX: R50.9 Fever, unspecified (principal); R11.0 Nausea; Z20.828 Contact with and (suspected) exposure to other viral communicable diseases; Z53.9 Procedure and treatment not carried out, unspecified reason; Z88.6 Allergy status to analgesic agent; Z79.899 Other long term (current) drug therapy
CPT/HCPCS: 87502; 99281; Q0162; U0003

== ENCOUNTER → 2020-11-25 | Outpatient (REF) | payer OTHER ==
[~2020-11-25] MED LIST changes: +AMPH1CAP15 PO; +ARIP1TAB6 PO; +ZOLP10TA2 PO
== END ==
LOC: M WUC 09:40
PROVIDERS: ATTEND Physician Assistant
DX: R30.0 Dysuria (principal)

== ENCOUNTER → 2021-02-09 | Outpatient (REF) | payer OTHER | LOC: M WUC 20:00 | PROVIDERS: ATTEND Physician Assistant | DX: Z11.3 Encounter for screening for infections with a predominantly sexual mode of transmission (principal) ==

== ENCOUNTER → 2021-02-22 | Outpatient (REF) | payer OTHER | LOC: M LAB REF 17:34 | PROVIDERS: ATTEND Physician Assistant | DX: R30.0 Dysuria (principal) ==

== ENCOUNTER → 2021-04-16 | Outpatient (REF) | payer OTHER ==
[2021-04-16 18:11] LABS: APPEARANCE, URINE CLOUDY (CLEAR); BACTERIA, URINE AUTO 1+ (NEGATIVE); BILIRUBIN, URINE AUTO NEGATIVE (NEGATIVE); BLOOD, URINE BLOOD 2+ (NEGATIVE); COLOR, URINE YELLOW (YELLOW); GLUCOSE, URINE (UA) AUTO NEGATIVE (NEGATIVE); KETONE, URINE AUTO NEGATIVE (NEGATIVE); LEUKOCYTE ESTERASE, URINE AUTO 3+ (NEGATIVE); MUCUS, URINE SMALL (NEGATIVE); NITRITE, URINE AUTO NEGATIVE (NEGATIVE); PROTEIN, URINE AUTO NEGATIVE (NEGATIVE); RBC, URINE AUTO 19 /HPF (0-3); SPECIFIC GRAVITY URINE AUTO 1.014 (1.002-1.035); SQUAMOUS EPITHELIAL CELL UR AU 2 /HPF (0-6); UROBILINOGEN, URINE AUTO 0.2 mg/dL (0.0-2.0); WBC, URINE AUTO 104 /HPF (0-3)
== END ==
LOC: M LAB REF 17:23
PROVIDERS: ATTEND Physician Assistant
DX: R30.0 Dysuria (principal)

== ENCOUNTER → 2021-04-29 | Outpatient (REF) | payer OTHER ==
[2021-04-29 14:42] LABS: APPEARANCE, URINE CLEAR (CLEAR); BACTERIA, URINE AUTO NEGATIVE (NEGATIVE); BILIRUBIN, URINE AUTO NEGATIVE (NEGATIVE); BLOOD, URINE BLOOD 2+ (NEGATIVE); COLOR, URINE STRAW (YELLOW); GLUCOSE, URINE (UA) AUTO NEGATIVE (NEGATIVE); KETONE, URINE AUTO NEGATIVE (NEGATIVE); LEUKOCYTE ESTERASE, URINE AUTO NEGATIVE (NEGATIVE); NITRITE, URINE AUTO NEGATIVE (NEGATIVE); PROTEIN, URINE AUTO NEGATIVE (NEGATIVE); RBC, URINE AUTO 0 /HPF (0-3); SPECIFIC GRAVITY URINE AUTO 1.009 (1.002-1.035); SQUAMOUS EPITHELIAL CELL UR AU 2 /HPF (0-6); UROBILINOGEN, URINE AUTO 0.2 mg/dL (0.0-2.0); WBC, URINE AUTO 0 /HPF (0-3)
== END ==
LOC: M LAB REF 13:16
PROVIDERS: ATTEND Physician Assistant
DX: N39.0 Urinary tract infection, site not specified (principal)

== ENCOUNTER → 2021-06-19 | Outpatient (REF) | payer OTHER ==
[2021-06-19 22:45] LABS: APPEARANCE, URINE HAZY (CLEAR); BACTERIA, URINE AUTO NEGATIVE (NEGATIVE); BILIRUBIN, URINE AUTO NEGATIVE (NEGATIVE); BLOOD, URINE BLOOD NEGATIVE (NEGATIVE); COLOR, URINE YELLOW (YELLOW); GLUCOSE, URINE (UA) AUTO NEGATIVE (NEGATIVE); KETONE, URINE AUTO TRACE mg/dL (NEGATIVE); LEUKOCYTE ESTERASE, URINE AUTO NEGATIVE (NEGATIVE); MUCUS, URINE SMALL (NEGATIVE); NITRITE, URINE AUTO NEGATIVE (NEGATIVE); PROTEIN, URINE AUTO NEGATIVE (NEGATIVE); RBC, URINE AUTO 0 /HPF (0-3); SPECIFIC GRAVITY URINE AUTO 1.021 (1.002-1.035); SQUAMOUS EPITHELIAL CELL UR AU 4 /HPF (0-6); UROBILINOGEN, URINE AUTO 0.2 mg/dL (0.0-2.0); WBC, URINE AUTO 1 /HPF (0-3)
== END ==
LOC: M LAB REF 22:13
PROVIDERS: ATTEND Physician Assistant Medical
DX: R30.0 Dysuria (principal)

== ENCOUNTER → 2021-07-20 | Outpatient (REF) | payer OTHER ==
[2021-07-20 14:09] LABS: APPEARANCE, URINE HAZY (CLEAR); BACTERIA, URINE AUTO NEGATIVE (NEGATIVE); BILIRUBIN, URINE AUTO NEGATIVE (NEGATIVE); BLOOD, URINE BLOOD NEGATIVE (NEGATIVE); COLOR, URINE YELLOW (YELLOW); GLUCOSE, URINE (UA) AUTO NEGATIVE (NEGATIVE); KETONE, URINE AUTO NEGATIVE (NEGATIVE); LEUKOCYTE ESTERASE, URINE AUTO NEGATIVE (NEGATIVE); MUCUS, URINE MODERATE (NEGATIVE); NITRITE, URINE AUTO NEGATIVE (NEGATIVE); PROTEIN, URINE AUTO NEGATIVE (NEGATIVE); RBC, URINE AUTO 3 /HPF (0-3); SPECIFIC GRAVITY URINE AUTO 1.023 (1.002-1.035); SQUAMOUS EPITHELIAL CELL UR AU 7 /HPF (0-6); UROBILINOGEN, URINE AUTO 0.2 mg/dL (0.0-2.0); WBC, URINE AUTO 1 /HPF (0-3)
== END ==
LOC: M LAB REF 13:29
PROVIDERS: ATTEND Physician Assistant
DX: R30.0 Dysuria (principal)

== ENCOUNTER 2021-10-26 20:48 | Emergency (ER) | payer OTHER ==
[~2021-10-26] VITALS: Ht 180.3 cm; Wt 126.9 kg
[2021-10-26 20:53] VITALS: BP 149/84
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
== END 2021-10-26 23:09 | disposition left against medical advice (07) ==
LOC: M ED 20:48
DX: Z53.21 Procedure and treatment not carried out due to patient leaving prior to being seen by health care provider (principal)

== ENCOUNTER → 2022-09-23 | Outpatient (CLI) | payer OTHER ==
[2022-09-23 21:19] LABS: GC DNA AMPLIFICATION NEGATIVE (NEGATIVE)
== END ==
LOC: M LAB 11:46
PROVIDERS: ATTEND Physician Assistant
DX: Z20.2 Contact with and (suspected) exposure to infections with a predominantly sexual mode of transmission (principal)

== ENCOUNTER → 2022-10-07 | Outpatient (CLI) | payer OTHER | LOC: M LABSMTC 11:45 | PROVIDERS: ATTEND Anesthesiology | DX: Z20.828 Contact with and (suspected) exposure to other viral communicable diseases (principal); Z11.59 Encounter for screening for other viral diseases ==

== ENCOUNTER 2022-10-11 11:07 | Day surgery (SDC) | payer OTHER ==
[~2022-10-11] VITALS: Ht 180.3 cm; Wt 127.9 kg
[2022-10-11] MEDS ORDERED: propofoL 200 MG/20 ML VIAL As Ordered ONE (13:48)
[2022-10-11] MEDS ORDERED: LIDOCAINE 2% 100MG/5ML SDV (FOR ANES.) As Ordered ONE (13:48)
[2022-10-11] MEDS ORDERED: fentaNYL 100 MCG/2 ML INJECTION As Ordered ONE (13:49)
[2022-10-11 14:22] VITALS: BP 121/79
[2022-10-12] MEDS ORDERED: NS 1,000 ML IV ONE (06:00)
== END 2022-10-11 14:34 | disposition home or self-care (01) ==
LOC: M OPP 11:07
PROVIDERS: ATTEND Internal Medicine Gastroenterology
DX: R11.10 Vomiting, unspecified (principal); K21.9 Gastro-esophageal reflux disease without esophagitis; Z98.0 Intestinal bypass and anastomosis status; E66.9 Obesity, unspecified; Z88.5 Allergy status to narcotic agent; Z79.899 Other long term (current) drug therapy
CPT/HCPCS: 43239; 88305; J3010

== ENCOUNTER → 2022-12-08 | Outpatient (CLI) | payer OTHER | LOC: M WHC 14:23 | PROVIDERS: ATTEND Advanced Practice Midwife | DX: O36.80X0 Pregnancy with inconclusive fetal viability, not applicable or unspecified (principal) ==

== ENCOUNTER → 2022-12-23 | Outpatient (REF) | payer OTHER | LOC: M PLALAB 10:48 | PROVIDERS: ATTEND Advanced Practice Midwife | DX: Z53.9 Procedure and treatment not carried out, unspecified reason (principal) ==

== ENCOUNTER → 2022-12-23 | Outpatient (CLI) | payer OTHER ==
[2022-12-23 15:36] LABS: HEMATOCRIT 37.6 % (36.0-47.0); HEMOGLOBIN 12.3 g/dl (12.0-15.5); MEAN CORPUSCULAR HEMOGLOBIN 29.8 pg (27.0-33.0); MEAN CORPUSCULAR HGB CONC 32.7 g/dl (32.0-36.5); PLATELET COUNT, AUTOMATED 251 10^3/uL (150-450); RED BLOOD COUNT 4.13 10^6/uL (4.00-5.40); WHITE BLOOD COUNT 5.8 10^3/uL (4.0-10.0)
[2022-12-23 15:59] LABS: HIV 1&2 SCREEN CENTAUR NEGATIVE (NEGATIVE)
[2022-12-23 16:55] LABS: GC DNA AMPLIFICATION NEGATIVE (NEGATIVE)
== END ==
LOC: M PLALAB 11:03
PROVIDERS: ATTEND Advanced Practice Midwife
DX: Z36.9 Encounter for antenatal screening, unspecified (principal)

== ENCOUNTER → 2023-01-06 | Outpatient (CLI) | payer OTHER | LOC: M PLALAB 14:51 | PROVIDERS: ATTEND Advanced Practice Midwife | DX: Z53.9 Procedure and treatment not carried out, unspecified reason (principal) ==

== ENCOUNTER → 2023-01-19 | Outpatient (REF) | payer OTHER | LOC: M SFHCWAGY 17:21 | PROVIDERS: ATTEND Advanced Practice Midwife | DX: Z34.81 Encounter for supervision of other normal pregnancy, first trimester (principal) ==

== ENCOUNTER 2023-03-09 13:00 | Outpatient (CLI) | payer OTHER ==
[~2023-03-09] VITALS: Ht 180.3 cm; Wt 129.1 kg
[2023-03-09] MEDS ORDERED: PRENTAB9 PO (13:23)
[2023-03-09 13:25] VITALS: BP 139/81
[2023-03-09] MEDS ORDERED: HOME MED LIST COMPLETE! XX SCH (13:25)
[2023-03-09 14:19] LABS: HEMATOCRIT 35.2 % (36.0-47.0); HEMOGLOBIN 11.8 g/dl (12.0-15.5); MEAN CORPUSCULAR HEMOGLOBIN 30.3 pg (27.0-33.0); MEAN CORPUSCULAR HGB CONC 33.5 g/dl (32.0-36.5); MEAN CORPUSCULAR VOLUME 90.5 fl (80.0-96.0); PLATELET COUNT, AUTOMATED 188 10^3/uL (150-450); RED BLOOD COUNT 3.89 10^6/uL (4.00-5.40); WHITE BLOOD COUNT 6.4 10^3/uL (4.0-10.0)
== END 2023-03-09 15:13 | disposition home or self-care (01) ==
LOC: M LDO 13:00
PROVIDERS: ATTEND Obstetrics & Gynecology
DX: O26.892 Other specified pregnancy related conditions, second trimester (principal); R25.2 Cramp and spasm; O99.842 Bariatric surgery status complicating pregnancy, second trimester; Z3A.20 20 weeks gestation of pregnancy

== ENCOUNTER → 2023-03-11 | Outpatient (CLI) | payer OTHER ==
[~2023-03-11] MED LIST changes: +PRENTAB9 PO
== END ==
LOC: M WHC 13:53
PROVIDERS: ATTEND Advanced Practice Midwife
DX: Z34.02 Encounter for supervision of normal first pregnancy, second trimester (principal); Z3A.20 20 weeks gestation of pregnancy

== ENCOUNTER → 2023-04-08 | Outpatient (CLI) | payer OTHER | LOC: M WHC 10:56 | PROVIDERS: ATTEND Advanced Practice Midwife | DX: Z34.82 Encounter for supervision of other normal pregnancy, second trimester (principal); Z3A.24 24 weeks gestation of pregnancy ==

== ENCOUNTER → 2023-04-15 | Outpatient (CLI) | payer OTHER ==
[2023-04-15 20:13] LABS: CALCIUM LEVEL 8.5 MG/DL (8.5-10.1)
[2023-04-15 20:18] LABS: HEMATOCRIT 36.5 % (36.0-47.0); HEMOGLOBIN 11.7 g/dl (12.0-15.5); MEAN CORPUSCULAR HEMOGLOBIN 29.8 pg (27.0-33.0); MEAN CORPUSCULAR HGB CONC 32.1 g/dl (32.0-36.5); MEAN CORPUSCULAR VOLUME 93.1 fl (80.0-96.0); PLATELET COUNT, AUTOMATED 216 10^3/uL (150-450); RED BLOOD COUNT 3.92 10^6/uL (4.00-5.40); WHITE BLOOD COUNT 7.2 10^3/uL (4.0-10.0)
[2023-04-15 20:28] LABS: HEMOGLOBIN A1c 4.6 % (4.0-6.0)
== END ==
LOC: M PLALAB 14:30
PROVIDERS: ATTEND Advanced Practice Midwife
DX: O99.842 Bariatric surgery status complicating pregnancy, second trimester (principal)

== ENCOUNTER → 2023-04-29 | Outpatient (CLI) | payer OTHER | LOC: M WHC 09:51 | PROVIDERS: ATTEND Advanced Practice Midwife | DX: O99.842 Bariatric surgery status complicating pregnancy, second trimester (principal) ==

== ENCOUNTER 2023-06-10 10:41 | Outpatient (CLI) | payer OTHER ==
[~2023-06-10] VITALS: Ht 177.8 cm; Wt 130.1 kg
[2023-06-10 11:03] VITALS: BP 108/75
[2023-06-10] MEDS ORDERED: ONDA4TAB6 PO (11:07)
[2023-06-10] MEDS ORDERED: HOME MED LIST COMPLETE! XX SCH (11:10)
== END 2023-06-10 12:26 | disposition home or self-care (01) ==
LOC: M LDO 10:41
PROVIDERS: ATTEND Advanced Practice Midwife
DX: O26.893 Other specified pregnancy related conditions, third trimester (principal); N89.8 Other specified noninflammatory disorders of vagina; R10.2 Pelvic and perineal pain; O99.843 Bariatric surgery status complicating pregnancy, third trimester; Z3A.34 34 weeks gestation of pregnancy
CPT/HCPCS: 59025; G0463

== ENCOUNTER → 2023-06-17 | Outpatient (CLI) | payer OTHER ==
[~2023-06-17] MED LIST changes: +ONDA4TAB6 PO
== END ==
LOC: M WHC 13:12
PROVIDERS: ATTEND Specialist
DX: Z34.83 Encounter for supervision of other normal pregnancy, third trimester (principal); Z3A.34 34 weeks gestation of pregnancy

== ENCOUNTER → 2023-06-24 | Outpatient (REF) | payer OTHER | LOC: M SFHCWAGY 13:04 | PROVIDERS: ATTEND Specialist | DX: Z34.83 Encounter for supervision of other normal pregnancy, third trimester (principal) ==

== ENCOUNTER 2023-06-30 15:01 | Outpatient (CLI) | payer OTHER ==
[~2023-06-30] VITALS: Ht 180.3 cm; Wt 130.9 kg
[2023-06-30 15:21] VITALS: BP 114/67
[2023-06-30] MEDS ORDERED: HOME MED LIST COMPLETE! XX SCH (15:30)
== END 2023-06-30 16:55 ==
LOC: M LDO 15:01
PROVIDERS: ATTEND Specialist
DX: O26.893 Other specified pregnancy related conditions, third trimester (principal); N89.8 Other specified noninflammatory disorders of vagina; O47.03 False labor before 37 completed weeks of gestation, third trimester; Z3A.36 36 weeks gestation of pregnancy; O99.843 Bariatric surgery status complicating pregnancy, third trimester
CPT/HCPCS: 59025; G0463

== ENCOUNTER 2023-07-09 11:44 | Outpatient (CLI) | payer OTHER ==
[~2023-07-09] VITALS: Ht 180.3 cm; Wt 129.3 kg
[2023-07-09] MEDS ORDERED: OMEP40CA4 PO (12:02)
[2023-07-09 12:03] VITALS: BP 142/100
[2023-07-09] MEDS ORDERED: LACTATED RINGER'S 1000 ML IV ONE (13:00)
[2023-07-09] MEDS ORDERED: HOME MED LIST COMPLETE! XX SCH (13:05)
[2023-07-09 13:10] LABS: HEMATOCRIT 35.2 % (36.0-47.0); HEMOGLOBIN 11.9 g/dl (12.0-15.5); MEAN CORPUSCULAR HEMOGLOBIN 29.8 pg (27.0-33.0); MEAN CORPUSCULAR HGB CONC 33.8 g/dl (32.0-36.5); PLATELET COUNT, AUTOMATED 215 10^3/uL (150-450)
[2023-07-09] MEDS ORDERED: METOCLOPRAMIDE INJ 10MG/2ML VIAL IV PRN (13:20)
[2023-07-09 13:47] LABS: ALBUMIN 2.9 G/DL (3.2-5.2); ALKALINE PHOSPHATASE 133 U/L (46-116); ALT/SGPT 11 U/L (7.0-40); AST/SGOT 9 U/L (<34); BILIRUBIN,TOTAL 0.5 MG/DL (0.3-1.2); BLOOD UREA NITROGEN 7 MG/DL (9-23); CALCIUM LEVEL 8.8 MG/DL (8.5-10.1); CARBON DIOXIDE LEVEL 20 MMOL/L (20-31); CHLORIDE LEVEL 105 MMOL/L (98-107); CREATININE FOR GFR 0.54 MG/DL (0.55-1.30); GLOMERULAR FILTRATION RATE > 60.0 (>60); GLUCOSE, FASTING 83 MG/DL (60-100); POTASSIUM SERUM 4.2 MMOL/L (3.5-5.1); SODIUM LEVEL 135 MMOL/L (136-145); TOTAL PROTEIN 6.5 G/DL (5.7-8.2)
[2023-07-09] MEDS ORDERED: PANTOPRAZOLE 40MG VIAL IV ONE (14:00)
[2023-07-09] MEDS ORDERED: ONDANSETRON 4MG 2ML VIAL IV PRN (14:20)
[2023-07-09 14:36] LABS: APPEARANCE, URINE CLOUDY (CLEAR); BACTERIA, URINE AUTO 1+ (NEGATIVE); BILIRUBIN, URINE AUTO 1+ (NEGATIVE); BLOOD, URINE BLOOD NEGATIVE (NEGATIVE); COLOR, URINE AMBER (YELLOW); GLUCOSE, URINE (UA) AUTO NEGATIVE (NEGATIVE); KETONE, URINE AUTO TRACE mg/dL (NEGATIVE); LEUKOCYTE ESTERASE, URINE AUTO NEGATIVE (NEGATIVE); MUCUS, URINE LARGE (NEGATIVE); NITRITE, URINE AUTO NEGATIVE (NEGATIVE); PROTEIN, URINE AUTO 2+ mg/dL (NEGATIVE); RBC, URINE AUTO 4 /HPF (0-3); SPECIFIC GRAVITY URINE AUTO 1.027 (1.002-1.035); SQUAMOUS EPITHELIAL CELL UR AU 5 /HPF (0-6); WBC, URINE AUTO 8 /HPF (0-3)
[2023-07-09 15:01] LABS: TOTAL PROTEIN,RANDOM URINE 44.1 MG/DL (0.0-14.0)
[2023-07-09 15:24] LABS: CREATININE,RANDOM URINE 334.1 MG/DL
[2023-07-09] MEDS ORDERED: CEPH250T PO (15:33)
[2023-07-09] MEDS ORDERED: REGL10TA6 PO (15:34)
[2023-07-09] MEDS ORDERED: MONI1OIN VG (15:47)
== END 2023-07-09 15:42 | disposition home or self-care (01) ==
LOC: M LDO 11:44
PROVIDERS: ATTEND Obstetrics & Gynecology
DX: O21.8 Other vomiting complicating pregnancy (principal); O99.843 Bariatric surgery status complicating pregnancy, third trimester; Z88.5 Allergy status to narcotic agent; Z3A.38 38 weeks gestation of pregnancy; Z98.84 Bariatric surgery status
CPT/HCPCS: 80053; 81001; 82570; 84156; 85027; C9113

== ENCOUNTER 2023-07-12 13:22 | Inpatient (IN) | payer OTHER ==
[~2023-07-12] VITALS: Ht 180.3 cm; Wt 132.1 kg
[2023-07-12] VITALS (8 sets, daily range): BP systolic 97–132; BP diastolic 58–75; O2SAT 98
[~2023-07-12 13:22] MED LIST changes: +CEPH250T PO; +MONI1OIN VG; +OMEP40CA4 PO; +REGL10TA6 PO
[2023-07-12] MEDS ORDERED: OXYTOCIN DRIP 30 UNITS in IV 1 EA IV PRN (14:05)
[2023-07-12] MEDS ORDERED: LIDOCAINE 1% MDV 20ML VIAL INFIL PRN (14:05)
[2023-07-12] MEDS ORDERED: ONDA8TAB8 PO (14:34)
[2023-07-12] MEDS ORDERED: HOME MED LIST COMPLETE! XX SCH (14:40)
[2023-07-12 15:56] LABS: HEMATOCRIT 33.3 % (36.0-47.0); HEMOGLOBIN 11.2 g/dl (12.0-15.5); MEAN CORPUSCULAR HGB CONC 33.6 g/dl (32.0-36.5); MEAN CORPUSCULAR VOLUME 89.3 fl (80.0-96.0); PLATELET COUNT, AUTOMATED 200 10^3/uL (150-450); RED BLOOD COUNT 3.73 10^6/uL (4.00-5.40); WHITE BLOOD COUNT 7.6 10^3/uL (4.0-10.0)
[2023-07-12] MEDS: miSOPROStol 50MCG 1/2 TABLET SL SCH ×2 (16:22→20:23)
[2023-07-12] MEDS ORDERED: ONDANSETRON 4MG 2ML VIAL IV SCH (19:15)
[2023-07-12] MEDS: ONDANSETRON 4MG 2ML VIAL IV SCH (19:28)
[2023-07-12] MEDS ORDERED: NALBUPHINE HCL (10 MG/ML) 100MG/10ML MDV IV ONE (22:10)
[2023-07-12] MEDS ORDERED: PROMETHAZINE 25MG/ML 1ML VIAL IV ONE (22:10)
[2023-07-13] VITALS (17 sets, daily range): BP systolic 95–138; BP diastolic 55–78; O2SAT 100
[2023-07-13] MEDS: miSOPROStol 50MCG 1/2 TABLET SL SCH ×3 (00:23→11:09)
[2023-07-13] MEDS: ONDANSETRON 4MG 2ML VIAL IV SCH ×5 (03:15→20:59)
[2023-07-13] MEDS ORDERED: LR 1,000 ML IV SCH (14:20)
[2023-07-13] MEDS ORDERED: OXYTOCIN DRIP 30 UNITS in IV 1 EA IV SCH (14:20)
[2023-07-13] MEDS ORDERED: LACTATED RINGER'S 1000 ML IV STA (21:33)
[2023-07-13] MEDS ORDERED: OXYTOCIN DRIP 30 UNITS in IV 1 EA IV PRN ×4 (21:35)
[2023-07-13] MEDS ORDERED: TRANEXAMIC ACID INJection 1,000 MG in NS 100 ML IV PRN (21:35)
[2023-07-13] MEDS ORDERED: OXYTOCIN INJ 10UNITS/ML 1ML VIAL IM PRN (21:35)
[2023-07-13] MEDS ORDERED: ceFAZolin SOD 3 GM IV Place Holder IV ONE (21:35)
[2023-07-13] MEDS ORDERED: METHYLERGONOVINE MALEATE 0.2MG/ML 1ML VIAL IM PRN (21:35)
[2023-07-13] MEDS ORDERED: ceFAZolin SOD 1 GM in D5W MINI-BAG PLUS 50 ML IV ONE (21:40)
[2023-07-13] MEDS ORDERED: ceFAZolin SOD 2 GM in IV 1 EA IV ONE (21:40)
[2023-07-13] MEDS ORDERED: fentaNYL 100 MCG/2 ML INJECTION IV PRN (21:50)
[2023-07-13] MEDS ORDERED: ONDANSETRON 4MG 2ML VIAL IV PRN (21:50)
[2023-07-13] MEDS ORDERED: METOCLOPRAMIDE INJ 10MG/2ML VIAL IV PRN (21:50)
[2023-07-13] MEDS ORDERED: NALOXONE INJ 0.4MG/1ML VIAL IV PRN ×2 (21:50)
[2023-07-13] MEDS ORDERED: **NOTE PATIENT COMMENT** MISC XX SCH (21:50)
[2023-07-13] MEDS ORDERED: SLF 3 ML SYR IV SCH (21:50)
[2023-07-13] MEDS ORDERED: diphenhydrAMINE 50MG/ML VIAL IV PRN (21:50)
[2023-07-13] MEDS ORDERED: CARBOPROST TROMETHAMINE 250 MCG/ML AMP IM PRN (22:00)
[2023-07-13] MEDS ORDERED: AZITHROMYCIN INJ 500 MG, VIAL MATE ADAPTER 1 EACH in NS 250 ML IV ONE (22:00)
[2023-07-13] MEDS ORDERED: BICITRA 30ML SOLN UDC PO ONE (22:00)
[2023-07-13] MEDS ORDERED: OXYTOCIN 30UNITS IN 0.9% NaCl 500ML IV BAG As Ordered ONE (22:10)
[2023-07-13] MEDS ORDERED: ACETAMINOPHEN 1000MG 100ML IV BAG As Ordered ONE (23:05)
[2023-07-13] MEDS ORDERED: METOCLOPRAMIDE INJ 10MG/2ML VIAL As Ordered ONE (23:05)
[2023-07-13] MEDS ORDERED: ONDANSETRON 4MG 2ML VIAL As Ordered ONE (23:05)
[2023-07-13] MEDS ORDERED: KETOROLAC 60MG 2ML VIAL As Ordered ONE (23:05)
[2023-07-14] VITALS (10 sets, daily range): BP systolic 115–137; BP diastolic 65–81; TEMP 97.9; O2SAT 95–98
[2023-07-14] MEDS ORDERED: oxyCODONE 5MG TAB PO PRN ×2 (00:10)
[2023-07-14] MEDS ORDERED: SIMETHICONE 80MG CHEW TAB PO PRN (00:10)
[2023-07-14] MEDS ORDERED: DOCUSATE SODIUM 100MG CAPSULE PO PRN (00:10)
[2023-07-14] MEDS ORDERED: ONDANSETRON 4MG 2ML VIAL IV PRN ×2 (00:10→01:10)
[2023-07-14] MEDS ORDERED: METOCLOPRAMIDE INJ 10MG/2ML VIAL IV PRN ×2 (00:10→01:10)
[2023-07-14] MEDS ORDERED: OXYTOCIN DRIP 30 UNITS in IV 1 EA IV SCH (00:10)
[2023-07-14] MEDS ORDERED: RHOGAM 300MCG (1500IU) INJ IM SCH (00:10)
[2023-07-14] MEDS ORDERED: oxyCODONE 5MG TAB As Ordered ONE (00:49)
[2023-07-14] MEDS ORDERED: fentaNYL 100 MCG/2 ML INJECTION IV PRN (01:10)
[2023-07-14] MEDS: SLF 3 ML SYR IV SCH ×3 (01:10→17:43)
[2023-07-14] MEDS ORDERED: diphenhydrAMINE 50MG/ML VIAL IV PRN (01:10)
[2023-07-14] MEDS ORDERED: NALOXONE INJ 0.4MG/1ML VIAL IV PRN ×2 (01:10)
[2023-07-14] MEDS ORDERED: **NOTE PATIENT COMMENT** MISC XX SCH (01:10)
[2023-07-14] MEDS ORDERED: fentaNYL 100 MCG/2 ML INJECTION As Ordered ONE (01:11)
[2023-07-14] MEDS: KETOROLAC 30 MG/ML 1ML VIAL IV SCH ×3 (05:00→17:42)
[2023-07-14] MEDS: ACETAMINOPHEN 500 MG TAB PO SCH ×3 (05:10→18:06)
[2023-07-14] MEDS: ENOXAPARIN 40MG/0.4ML SYRINGE (J1650 PER 10MG) SC SCH ×2 (07:39→21:12)
[2023-07-14] MEDS: PRENATAL VITAMINS CHEWABLE TABLET PO SCH (07:40)
[2023-07-14] MEDS ORDERED: ACET-683 PO (11:12)
[2023-07-14] MEDS ORDERED: IBUP-1022 PO (11:12)
[2023-07-14] MEDS ORDERED: COLA100C5 PO (11:12)
[2023-07-14] MEDS ORDERED: OXYC-517 PO (11:12)
[2023-07-15] MEDS ORDERED: UNRESOLVED CLARIFICATION ENTRY XX SCH (00:01)
[2023-07-15] MEDS: ACETAMINOPHEN 500 MG TAB PO SCH ×3 (00:20→11:43)
[2023-07-15] MEDS ORDERED: IBUPROFEN 600MG TAB PO SCH (01:00)
[2023-07-15 02:00] VITALS: BP 125/72; O2SAT 99
[2023-07-15 05:55] VITALS: BP 129/73; O2SAT 99
[2023-07-15 06:59] LABS: HEMATOCRIT 29.2 % (36.0-47.0); HEMOGLOBIN 9.5 g/dl (12.0-15.5); MEAN CORPUSCULAR HEMOGLOBIN 29.9 pg (27.0-33.0); MEAN CORPUSCULAR HGB CONC 32.5 g/dl (32.0-36.5); MEAN CORPUSCULAR VOLUME 91.8 fl (80.0-96.0); PLATELET COUNT, AUTOMATED 166 10^3/uL (150-450); RED BLOOD COUNT 3.18 10^6/uL (4.00-5.40); WHITE BLOOD COUNT 5.9 10^3/uL (4.0-10.0)
[2023-07-15] MEDS: PRENATAL VITAMINS CHEWABLE TABLET PO SCH (07:22)
[2023-07-15 08:30] VITALS: BP 105/67; O2SAT 97
[2023-07-15] MEDS: ENOXAPARIN 40MG/0.4ML SYRINGE (J1650 PER 10MG) SC SCH (08:33)
[2023-07-15] MEDS ORDERED: MEASLES,MUMPS,RUBELLA VACCINE INJ (MMR-II) SC.IMMUN ONE (09:00)
[2023-07-15] MEDS ORDERED: LOVE1INJ SC (10:45)
== END 2023-07-15 12:41 | disposition home or self-care (01) | DRG 540 ==
LOC: EEVIPCON 13:22 → M LDI 13:22 → M OBS 07-14 02:26
PROVIDERS: ADMIT Specialist; ATTEND Specialist
PROC: 3E033VJ Introduction of Other Hormone into Peripheral Vein, Percutaneous Approach (ICD-10-PCS; 2023-07-13)
PROC: 10D00Z1 Extraction of Products of Conception, Low, Open Approach (ICD-10-PCS; principal; 2023-07-13 22:45)
DX: O13.4 Gestational [pregnancy-induced] hypertension without significant proteinuria, complicating childbirth (principal); Z37.0 Single live birth; Z3A.38 38 weeks gestation of pregnancy; Z88.5 Allergy status to narcotic agent; E66.9 Obesity, unspecified; O99.214 Obesity complicating childbirth; Z79.899 Other long term (current) drug therapy; O61.0 Failed medical induction of labor

== ENCOUNTER → 2023-11-25 | Outpatient (CLI) | payer OTHER ==
[~2023-11-25] MED LIST changes: +COLA100C5 PO; +LOVE1INJ SC; +ONDA8TAB8 PO; +OXYC-517 PO
[2023-11-25 13:38] LABS: FOLATE > 24.00 NG/ML (>5.4)
[2023-11-25 13:39] LABS: IRON (FE) 73 UG/DL (50-170)
[2023-11-25 13:40] LABS: VITAMIN B12 LEVEL 377 PG/ML (211-911)
[2023-11-25 13:41] LABS: HEMATOCRIT 35.4 % (36.0-47.0); HEMOGLOBIN 11.6 g/dl (12.0-15.5); MEAN CORPUSCULAR HEMOGLOBIN 29.1 pg (27.0-33.0); MEAN CORPUSCULAR HGB CONC 32.8 g/dl (32.0-36.5); MEAN CORPUSCULAR VOLUME 88.7 fl (80.0-96.0); PLATELET COUNT, AUTOMATED 239 10^3/uL (150-450); RED BLOOD COUNT 3.99 10^6/uL (4.00-5.40); WHITE BLOOD COUNT 5.2 10^3/uL (4.0-10.0)
[2023-11-25 14:11] LABS: HIV 1&2 SCREEN NEGATIVE (NEGATIVE)
[2023-11-25 14:19] LABS: HEPATITIS C VIRUS ABY INDEX 0.02 INDEX (<0.8)
== END ==
LOC: M PLALAB 10:37
PROVIDERS: ATTEND Advanced Practice Midwife
DX: Z34.91 Encounter for supervision of normal pregnancy, unspecified, first trimester (principal); K90.9 Intestinal malabsorption, unspecified

== ENCOUNTER → 2024-01-11 | Outpatient (CLI) | payer OTHER | LOC: M WHC 13:00 | PROVIDERS: ATTEND Advanced Practice Midwife | DX: Z34.92 Encounter for supervision of normal pregnancy, unspecified, second trimester (principal); Z3A.18 18 weeks gestation of pregnancy ==

== ENCOUNTER → 2024-02-09 | Outpatient (CLI) | payer OTHER | LOC: M WHC 11:08 | PROVIDERS: ATTEND Advanced Practice Midwife | DX: Z34.92 Encounter for supervision of normal pregnancy, unspecified, second trimester (principal); Z3A.23 23 weeks gestation of pregnancy ==

== ENCOUNTER 2024-02-23 16:42 | Outpatient (CLI) | payer OTHER ==
[~2024-02-23] VITALS: Ht 180.3 cm; Wt 124.6 kg
[~2024-02-23 16:42] MED LIST changes: +ONDA-282 PO; +ONDA-284 PO; -ONDA4TAB6 PO; -ONDA8TAB8 PO
[2024-02-23 17:03] VITALS: BP 111/68
[2024-02-23 18:14] VITALS: BP 108/62
[2024-03-28] MEDS ORDERED: METR0.7526 TOP (11:50)
== END 2024-02-23 18:16 | disposition left against medical advice (07) ==
LOC: M LDO 16:42
PROVIDERS: ATTEND Obstetrics & Gynecology
DX: Z53.21 Procedure and treatment not carried out due to patient leaving prior to being seen by health care provider (principal)

== ENCOUNTER → 2024-03-05 | Outpatient (CLI) | payer OTHER ==
[~2024-03-05] MED LIST changes: -ONDA-282 PO; -ONDA-284 PO; +ONDA4TAB6 PO; +ONDA8TAB8 PO
== END ==
LOC: M RAD 15:31
PROVIDERS: ATTEND Obstetrics & Gynecology
DX: Z36.2 Encounter for other antenatal screening follow-up (principal); Z3A.26 26 weeks gestation of pregnancy

== ENCOUNTER → 2024-03-19 | Outpatient (CLI) | payer OTHER ==
[2024-03-19 13:20] LABS: HEMATOCRIT 33.8 % (36.0-47.0); MEAN CORPUSCULAR HEMOGLOBIN 29.3 pg (27.0-33.0); MEAN CORPUSCULAR HGB CONC 32.5 g/dl (32.0-36.5); MEAN CORPUSCULAR VOLUME 90.1 fl (80.0-96.0); PLATELET COUNT, AUTOMATED 197 10^3/uL (150-450); RED BLOOD COUNT 3.75 10^6/uL (4.00-5.40); WHITE BLOOD COUNT 5.7 10^3/uL (4.0-10.0)
[2024-03-19 15:05] LABS: GC DNA AMPLIFICATION NEGATIVE (NEGATIVE)
== END ==
LOC: M PLALAB 11:34
PROVIDERS: ATTEND Obstetrics & Gynecology
DX: Z34.92 Encounter for supervision of normal pregnancy, unspecified, second trimester (principal); Z3A.00 Weeks of gestation of pregnancy not specified

== ENCOUNTER 2024-03-27 11:53 | Outpatient (CLI) | payer OTHER ==
[~2024-03-27] VITALS: Ht 180.3 cm; Wt 123.6 kg
[2024-03-27 12:12] VITALS: BP 117/71
[2024-03-27] MEDS ORDERED: HOME MED LIST COMPLETE! XX SCH (12:15)
[2024-03-27 14:56] LABS: Trichomonas vaginalis (AMP) NOT DETECTED (NEGATIVE)
[2024-03-27 15:19] LABS: GC DNA AMPLIFICATION NEGATIVE (NEGATIVE)
[2024-03-28] MEDS ORDERED: METR0.7526 TOP (11:50)
== END 2024-03-27 15:15 | disposition home or self-care (01) ==
LOC: M LDO 11:53
PROVIDERS: ATTEND Obstetrics & Gynecology
DX: O26.893 Other specified pregnancy related conditions, third trimester (principal); O34.219 Maternal care for unspecified type scar from previous cesarean delivery; R10.2 Pelvic and perineal pain; Z3A.29 29 weeks gestation of pregnancy
CPT/HCPCS: 59025; 76815; 76819; 76820; 81001; 87661; 87810; 87850; G0463

== ENCOUNTER → 2024-04-16 | Outpatient (CLI) | payer OTHER ==
[~2024-04-16] MED LIST changes: +METR0.7526 TOP; +ONDA-282 PO; +ONDA-284 PO; -ONDA4TAB6 PO; -ONDA8TAB8 PO
[2024-04-16 18:51] LABS: ALBUMIN 2.9 G/DL (3.2-5.2); ALKALINE PHOSPHATASE 96 U/L (46-116); ALT/SGPT < 9 U/L (7.0-40); AST/SGOT < 8 U/L (<34); BILIRUBIN,TOTAL 0.4 MG/DL (0.3-1.2); BLOOD UREA NITROGEN 6 MG/DL (9-23); CALCIUM LEVEL 8.9 MG/DL (8.5-10.1); CARBON DIOXIDE LEVEL 24 MMOL/L (20-31); CHLORIDE LEVEL 106 MMOL/L (98-107); CREATININE FOR GFR 0.63 MG/DL (0.55-1.30); GLOMERULAR FILTRATION RATE > 60.0 (>60); GLUCOSE, FASTING 78 MG/DL (60-100); POTASSIUM SERUM 4.5 MMOL/L (3.5-5.1); SODIUM LEVEL 138 MMOL/L (136-145); TOTAL PROTEIN 6.7 G/DL (5.7-8.2)
[2024-04-16 19:17] LABS: HEMATOCRIT 34.4 % (36.0-47.0); HEMOGLOBIN 11.3 g/dl (12.0-15.5); MEAN CORPUSCULAR HEMOGLOBIN 29.5 pg (27.0-33.0); MEAN CORPUSCULAR HGB CONC 32.8 g/dl (32.0-36.5); MEAN CORPUSCULAR VOLUME 89.8 fl (80.0-96.0); PLATELET COUNT, AUTOMATED 221 10^3/uL (150-450); RED BLOOD COUNT 3.83 10^6/uL (4.00-5.40); WHITE BLOOD COUNT 6.5 10^3/uL (4.0-10.0)
== END ==
LOC: M PLALAB 15:09
PROVIDERS: ATTEND Specialist
DX: O09.293 Supervision of pregnancy with other poor reproductive or obstetric history, third trimester (principal)

== ENCOUNTER → 2024-04-17 | Outpatient (CLI) | payer OTHER | LOC: M RAD 13:28 | PROVIDERS: ATTEND Specialist | DX: O99.843 Bariatric surgery status complicating pregnancy, third trimester (principal); Z3A.32 32 weeks gestation of pregnancy ==

== ENCOUNTER 2024-04-23 10:48 | Outpatient (CLI) | payer OTHER ==
[~2024-04-23] VITALS: Ht 180.3 cm; Wt 123.8 kg
[2024-04-23] MEDS ORDERED: PRENMIS3 PO (11:06)
[2024-04-23 11:08] VITALS: BP 110/71
[2024-04-23] MEDS: LACTATED RINGER'S 1000 ML IV ONE (11:43)
[2024-04-23] MEDS: ONDANSETRON 4MG 2ML VIAL IV ONE (11:43)
[2024-04-23] MEDS: BETAMETHASONE SOLUSPAN 6MG/ML 5ML VIAL IM SCH (11:44)
[2024-04-23] MEDS: PANTOPRAZOLE 40MG VIAL IV ONE (12:09)
[2024-04-23 12:12] LABS: HEMATOCRIT 29.8 % (36.0-47.0); HEMOGLOBIN 9.8 g/dl (12.0-15.5); MEAN CORPUSCULAR HEMOGLOBIN 29.2 pg (27.0-33.0); MEAN CORPUSCULAR HGB CONC 32.9 g/dl (32.0-36.5); MEAN CORPUSCULAR VOLUME 88.7 fl (80.0-96.0); PLATELET COUNT, AUTOMATED 186 10^3/uL (150-450); RED BLOOD COUNT 3.36 10^6/uL (4.00-5.40); WHITE BLOOD COUNT 5.8 10^3/uL (4.0-10.0)
[2024-04-23 12:50] LABS: ALBUMIN 2.7 G/DL (3.2-5.2); ALKALINE PHOSPHATASE 82 U/L (46-116); ALT/SGPT < 9 U/L (7.0-40); AST/SGOT 26 U/L (<34); BILIRUBIN,TOTAL 0.4 MG/DL (0.3-1.2); BLOOD UREA NITROGEN 7 MG/DL (9-23); CARBON DIOXIDE LEVEL 21 MMOL/L (20-31); CHLORIDE LEVEL 108 MMOL/L (98-107); CREATININE FOR GFR 0.48 MG/DL (0.55-1.30); GLOMERULAR FILTRATION RATE > 60.0 (>60); GLUCOSE, FASTING 116 MG/DL (60-100); POTASSIUM SERUM 4.5 MMOL/L (3.5-5.1); SODIUM LEVEL 136 MMOL/L (136-145); TOTAL PROTEIN 6.1 G/DL (5.7-8.2)
[2024-04-23 13:02] VITALS: BP 109/61
[2024-04-23] MEDS ORDERED: FAMO40TA3 PO (13:40)
[2024-04-23 14:42] VITALS: BP 113/62
[2024-04-23] MEDS: FAMOTIDINE 20 MG TAB PO ONE (15:14)
== END 2024-04-23 15:21 | disposition home or self-care (01) ==
LOC: M LDO 10:48
PROVIDERS: ATTEND Advanced Practice Midwife
DX: O21.8 Other vomiting complicating pregnancy (principal); O36.8130 Decreased fetal movements, third trimester, not applicable or unspecified; O36.5930 Maternal care for other known or suspected poor fetal growth, third trimester, not applicable or unspecified; O34.219 Maternal care for unspecified type scar from previous cesarean delivery; O99.843 Bariatric surgery status complicating pregnancy, third trimester; O26.23 Pregnancy care for patient with recurrent pregnancy loss, third trimester; O99.283 Endocrine, nutritional and metabolic diseases complicating pregnancy, third trimester; E28.2 Polycystic ovarian syndrome; Z3A.33 33 weeks gestation of pregnancy
CPT/HCPCS: 59025; 76819; 76820; 80053; 85027; 96372; 96374; 96376; C9113; G0463; J0702; J2405

== ENCOUNTER 2024-04-24 11:34 | Outpatient (CLI) | payer OTHER ==
[~2024-04-24] VITALS: Ht 180.3 cm; Wt 122.7 kg
[~2024-04-24 11:34] MED LIST changes: +FAMO40TA3 PO; +PRENMIS3 PO
[2024-04-24 11:59] VITALS: BP 114/65
[2024-04-24] MEDS: BETAMETHASONE SOLUSPAN 6MG/ML 5ML VIAL IM ONE (13:21)
[2024-04-24 13:23] VITALS: BP 110/59
== END 2024-04-24 13:31 | disposition home or self-care (01) ==
LOC: M LDO 11:34
PROVIDERS: ATTEND Obstetrics & Gynecology
DX: O21.8 Other vomiting complicating pregnancy (principal); O36.5930 Maternal care for other known or suspected poor fetal growth, third trimester, not applicable or unspecified; O34.219 Maternal care for unspecified type scar from previous cesarean delivery; O99.843 Bariatric surgery status complicating pregnancy, third trimester; O99.283 Endocrine, nutritional and metabolic diseases complicating pregnancy, third trimester; E28.2 Polycystic ovarian syndrome; Z3A.33 33 weeks gestation of pregnancy
CPT/HCPCS: 59025; 96372; G0463; J0702

== ENCOUNTER 2024-04-25 10:33 | Outpatient (CLI) | payer OTHER ==
[~2024-04-25] VITALS: Ht 180.3 cm; Wt 122.7 kg
[2024-04-25 10:50] VITALS: BP 122/73; O2SAT 97
[2024-04-25 11:34] LABS: HEMATOCRIT 28.7 % (36.0-47.0); HEMOGLOBIN 9.6 g/dl (12.0-15.5); MEAN CORPUSCULAR HEMOGLOBIN 29.5 pg (27.0-33.0); MEAN CORPUSCULAR HGB CONC 33.4 g/dl (32.0-36.5); MEAN CORPUSCULAR VOLUME 88.3 fl (80.0-96.0); PLATELET COUNT, AUTOMATED 192 10^3/uL (150-450); RED BLOOD COUNT 3.25 10^6/uL (4.00-5.40); WHITE BLOOD COUNT 6.4 10^3/uL (4.0-10.0)
[2024-04-25 11:59] LABS: ALBUMIN 2.7 G/DL (3.2-5.2); ALKALINE PHOSPHATASE 77 U/L (46-116); ALT/SGPT < 9 U/L (7.0-40); AST/SGOT < 8 U/L (<34); BILIRUBIN,TOTAL 0.3 MG/DL (0.3-1.2); BLOOD UREA NITROGEN 8 MG/DL (9-23); CALCIUM LEVEL 8.6 MG/DL (8.5-10.1); CARBON DIOXIDE LEVEL 22 MMOL/L (20-31); CHLORIDE LEVEL 107 MMOL/L (98-107); CREATININE FOR GFR 0.48 MG/DL (0.55-1.30); GLOMERULAR FILTRATION RATE > 60.0 (>60); GLUCOSE, FASTING 97 MG/DL (60-100); POTASSIUM SERUM 4.1 MMOL/L (3.5-5.1); SODIUM LEVEL 137 MMOL/L (136-145); TOTAL PROTEIN 6.1 G/DL (5.7-8.2)
[2024-04-25] MEDS: LACTATED RINGER'S 1000 ML IV ONE (12:16)
[2024-04-25] MEDS: SUCRALFATE SUSP 1GM/10ML UD PO ONE (12:17)
[2024-04-25] MEDS: PANTOPRAZOLE 40MG VIAL IV ONE (12:17)
[2024-04-25] MEDS: diphenhydrAMINE 50MG/ML VIAL IV ONE (12:59)
[2024-04-25] MEDS: ACETAMINOPHEN 500 MG TAB PO ONE (12:59)
[2024-04-25 13:20] VITALS: O2SAT 98
[2024-04-25 13:21] VITALS: BP 115/61
[2024-04-25] MEDS: FERRIC CARBOXYMALTOSE INJ 750 MG, VIAL MATE ADAPTER 1 EACH in NS 250 ML IV ONE (13:21)
[2024-04-25 14:31] VITALS: BP 96/54
== END 2024-04-25 15:05 | disposition home or self-care (01) ==
LOC: M LDO 10:33
PROVIDERS: ATTEND Advanced Practice Midwife
DX: O21.8 Other vomiting complicating pregnancy (principal); O99.843 Bariatric surgery status complicating pregnancy, third trimester; O34.219 Maternal care for unspecified type scar from previous cesarean delivery; O36.5930 Maternal care for other known or suspected poor fetal growth, third trimester, not applicable or unspecified; O99.63 Diseases of the digestive system complicating the puerperium; O26.23 Pregnancy care for patient with recurrent pregnancy loss, third trimester; O99.283 Endocrine, nutritional and metabolic diseases complicating pregnancy, third trimester; E28.2 Polycystic ovarian syndrome; K25.9 Gastric ulcer, unspecified as acute or chronic, without hemorrhage or perforation; Z3A.33 33 weeks gestation of pregnancy
CPT/HCPCS: 59025; 80053; 85027; 96374; 96375; C9113; G0463; J1200; J1439

== ENCOUNTER 2024-05-01 11:59 | Outpatient (CLI) | payer OTHER ==
[~2024-05-01] VITALS: Ht 180.3 cm; Wt 121.7 kg
[2024-05-01 12:17] VITALS: BP 108/64
[2024-05-01 13:00] LABS: HEMATOCRIT 31.9 % (36.0-47.0); HEMOGLOBIN 10.5 g/dl (12.0-15.5); MEAN CORPUSCULAR HEMOGLOBIN 29.1 pg (27.0-33.0); MEAN CORPUSCULAR HGB CONC 32.9 g/dl (32.0-36.5); MEAN CORPUSCULAR VOLUME 88.4 fl (80.0-96.0); PLATELET COUNT, AUTOMATED 208 10^3/uL (150-450); RED BLOOD COUNT 3.61 10^6/uL (4.00-5.40); WHITE BLOOD COUNT 6.6 10^3/uL (4.0-10.0)
[2024-05-01] MEDS: LR 1,000 ML IV SCH (13:25)
[2024-05-01] MEDS: LACTATED RINGER'S 1000 ML IV STA (13:25)
[2024-05-01] MEDS: PANTOPRAZOLE 40MG VIAL IV ONE (13:25)
[2024-05-01 13:28] LABS: ALBUMIN 2.9 G/DL (3.2-5.2); ALKALINE PHOSPHATASE 89 U/L (46-116); ALT/SGPT < 9 U/L (7.0-40); AST/SGOT 10 U/L (<34); BILIRUBIN,TOTAL 0.4 MG/DL (0.3-1.2); BLOOD UREA NITROGEN 6 MG/DL (9-23); CALCIUM LEVEL 8.4 MG/DL (8.5-10.1); CARBON DIOXIDE LEVEL 23 MMOL/L (20-31); CHLORIDE LEVEL 108 MMOL/L (98-107); CREATININE FOR GFR 0.51 MG/DL (0.55-1.30); GLOMERULAR FILTRATION RATE > 60.0 (>60); GLUCOSE, FASTING 77 MG/DL (60-100); POTASSIUM SERUM 4.3 MMOL/L (3.5-5.1); SODIUM LEVEL 137 MMOL/L (136-145); TOTAL PROTEIN 6.3 G/DL (5.7-8.2)
[2024-05-01 14:03] VITALS: BP 118/56
== END 2024-05-01 15:04 | disposition home or self-care (01) ==
LOC: M LDO 11:59
PROVIDERS: ATTEND Specialist
DX: O21.8 Other vomiting complicating pregnancy (principal); O26.893 Other specified pregnancy related conditions, third trimester; R10.10 Upper abdominal pain, unspecified; O36.5930 Maternal care for other known or suspected poor fetal growth, third trimester, not applicable or unspecified; O99.843 Bariatric surgery status complicating pregnancy, third trimester; O34.219 Maternal care for unspecified type scar from previous cesarean delivery; Z3A.34 34 weeks gestation of pregnancy
CPT/HCPCS: 36415; 59025; 76816; 76820; 76821; 80053; 85027; 96374; C9113; G0463

== ENCOUNTER → 2024-05-08 | Outpatient (CLI) | payer OTHER | LOC: M WHC 09:57 | PROVIDERS: ATTEND Obstetrics & Gynecology | DX: O36.5990 Maternal care for other known or suspected poor fetal growth, unspecified trimester, not applicable or unspecified (principal); Z3A.00 Weeks of gestation of pregnancy not specified ==

== ENCOUNTER → 2024-06-26 | Outpatient (REF) | payer OTHER ==
[2024-06-26 13:09] LABS: RSV AMPLIFICATION NEGATIVE (NEGATIVE)
== END ==
LOC: M LAB REF 12:12
PROVIDERS: ATTEND Physician Assistant Medical
DX: R05.9 Cough, unspecified (principal)

== ENCOUNTER → 2024-08-27 | Outpatient (CLI) | payer OTHER ==
[2024-08-27 19:34] LABS: HEMOGLOBIN A1c 4.7 % (4.0-6.0)
[2024-08-27 19:44] LABS: IRON (FE) 53 UG/DL (50-170)
[2024-08-27 19:45] LABS: THYROXINE (T4) 6.5 UG/DL (4.5-10.9)
[2024-08-27 19:46] LABS: FERRITIN 51.9 NG/ML (7.3-270.7); THYROID STIMULATING HORMONE 1.949 uIU/ML (0.55-4.78); TOTAL 25(OH) VITAMIN D 26.9 NG/ML (20.0-100.0)
[2024-08-27 19:47] LABS: VITAMIN B12 LEVEL 693 PG/ML (211-911)
[2024-08-27 19:49] LABS: ALBUMIN 3.9 G/DL (3.2-5.2); ALKALINE PHOSPHATASE 63 U/L (46-116); ALT/SGPT 18 U/L (7.0-40); AST/SGOT < 8 U/L (<34); BILIRUBIN,TOTAL 0.4 MG/DL (0.3-1.2); BLOOD UREA NITROGEN 9 MG/DL (9-23); CALCIUM LEVEL 9.8 MG/DL (8.5-10.1); CARBON DIOXIDE LEVEL 27 MMOL/L (20-31); CHLORIDE LEVEL 109 MMOL/L (98-107); CREATININE FOR GFR 0.69 MG/DL (0.55-1.30); GLOMERULAR FILTRATION RATE > 60.0 (>60); GLUCOSE, FASTING 91 MG/DL (60-100); POTASSIUM SERUM 4.9 MMOL/L (3.5-5.1); SODIUM LEVEL 139 MMOL/L (136-145); TOTAL PROTEIN 7.4 G/DL (5.7-8.2)
== END ==
LOC: M PLALAB 14:43
PROVIDERS: ATTEND Nurse Practitioner Psychiatric/Mental Health
DX: F90.2 Attention-deficit hyperactivity disorder, combined type (principal)

== ENCOUNTER → 2025-01-07 | Outpatient (REF) | payer OTHER ==
[2025-01-07 20:44] LABS: Trichomonas vaginalis (AMP) NOT DETECTED (NEGATIVE)
[2025-01-07 21:08] LABS: GC DNA AMPLIFICATION NEGATIVE (NEGATIVE)
== END ==
LOC: M SFHCWAGY 17:30
PROVIDERS: ATTEND Obstetrics & Gynecology
DX: N89.8 Other specified noninflammatory disorders of vagina (principal); N92.6 Irregular menstruation, unspecified

== ENCOUNTER → 2025-01-17 | Outpatient (CLI) | payer OTHER ==
[2025-01-17 15:59] LABS: TOTAL IRON BINDING CAPACITY 303 UG/DL (250-425)
[2025-01-17 16:00] LABS: ALBUMIN 3.7 G/DL (3.2-5.2); ALKALINE PHOSPHATASE 72 U/L (35-104); ALT/SGPT 18 U/L (7.0-40); AST/SGOT 11 U/L (<34); BILIRUBIN,TOTAL 0.2 MG/DL (0.3-1.2); BLOOD UREA NITROGEN 9 MG/DL (9-23); C REACTIVE PROTEIN QUANTITATIV < 0.50 MG/DL (<1.0); CALCIUM LEVEL 8.8 MG/DL (8.5-10.1); CARBON DIOXIDE LEVEL 30 MMOL/L (20-31); CHLORIDE LEVEL 109 MMOL/L (98-107); CHOLESTEROL LEVEL 159 MG/DL (<200); CHOLESTEROL RISK RATIO 3.58 (<5); GLOMERULAR FILTRATION RATE > 60.0 (>60); GLUCOSE, FASTING 80 MG/DL (60-100); HDL CHOLESTEROL 44.4 MG/DL (>40); IRON (FE) 49 UG/DL (50-170); LDL CHOLESTEROL 89.8 MG/DL (<100); NON-HDL-C 114.6 MG/DL; PERCENT SATURATION 16.2 % (13.2-45.0); POTASSIUM SERUM 4.7 MMOL/L (3.5-5.1); SODIUM LEVEL 142 MMOL/L (136-145); TOTAL PROTEIN 7.2 G/DL (5.7-8.2); TRIGLYCERIDES LEVEL 124 MG/DL (<150)
[2025-01-17 16:01] LABS: THYROID STIMULATING HORMONE 2.418 uIU/ML (0.55-4.78); TOTAL 25(OH) VITAMIN D 15.4 NG/ML (20.0-100.0)
[2025-01-17 16:02] LABS: FERRITIN 24.1 NG/ML (7.3-270.7)
[2025-01-17 16:04] LABS: HCG, SERUM QUALITATIVE NEGATIVE (NEGATIVE)
[2025-01-17 16:06] LABS: BASO % 0.4 % (0.0-1.0); EOS # 0.2 10^3/uL (0.0-0.5); EOS % 2.4 % (0.0-3.0); HEMATOCRIT 38.7 % (36.0-47.0); HEMOGLOBIN 12.4 g/dl (12.0-15.5); LYMPH # 2.6 10^3/uL (1.5-5.0); LYMPH % 36.9 % (24.0-44.0); MEAN CORPUSCULAR HEMOGLOBIN 29.5 pg (27.0-33.0); MEAN CORPUSCULAR VOLUME 92.1 fl (80.0-96.0); MONO # 0.6 10^3/uL (0.0-0.8); MONO % 7.9 % (2.0-8.0); NEUTROPHILS # 3.7 10^3/uL (1.5-8.5); PLATELET COUNT, AUTOMATED 301 10^3/uL (150-450); WHITE BLOOD COUNT 7.1 10^3/uL (4.0-10.0)
[2025-01-17 16:12] LABS: ERYTHROCYTE SEDIMENTATION RATE 25 mm/hr (0-20)
[2025-01-17 16:27] LABS: HIV 1&2 SCREEN NEGATIVE (NEGATIVE)
== END ==
LOC: M PLALAB 12:29
PROVIDERS: ATTEND Physician Assistant
DX: E55.9 Vitamin D deficiency, unspecified (principal); E66.9 Obesity, unspecified; R42 Dizziness and giddiness; Z11.9 Encounter for screening for infectious and parasitic diseases, unspecified

== ENCOUNTER → 2025-01-18 | Outpatient (CLI) | payer OTHER | LOC: M LAB 16:58 | PROVIDERS: ATTEND Physician Assistant | DX: N91.2 Amenorrhea, unspecified (principal) ==

== ENCOUNTER → 2025-06-07 | Outpatient (REF) | payer OTHER | LOC: M LAB REF 16:18 | PROVIDERS: ATTEND Family Medicine Addiction Medicine | DX: R10.11 Right upper quadrant pain (principal) ==

== ENCOUNTER → 2025-09-17 | Outpatient (CLI) | payer OTHER ==
[~2025-09-17] MED LIST changes: -IBUP-1022 PO; +IBUP600T42 PO; +ZOLP10TA11 PO; -ZOLP10TA2 PO
== END ==
LOC: M RAD 12:48
PROVIDERS: ATTEND Physician Assistant
DX: M79.641 Pain in right hand (principal)

== ENCOUNTER → 2025-09-19 | Outpatient (CLI) | payer OTHER | LOC: M WHC 12:54 | PROVIDERS: ATTEND Physician Assistant | DX: L72.0 Epidermal cyst (principal) ==

== ENCOUNTER → 2025-10-15 | Outpatient (CLI) | payer OTHER ==
[2025-10-15 14:35] LABS: PLATELET COUNT, AUTOMATED 324 10^3/uL (150-450)
[2025-10-15 15:05] LABS: LDH LACTATE DEHYDROGENASE 152 U/L (120-246)
[2025-10-15 15:06] LABS: ALT/SGPT 34 U/L (7.0-40); AST/SGOT 19 U/L (<34); CREATININE FOR GFR 0.69 MG/DL (0.55-1.30); GLOMERULAR FILTRATION RATE > 90.0 (>60)
[2025-10-15 15:39] LABS: HIV 1&2 SCREEN NEGATIVE (NEGATIVE)
[2025-10-15 15:46] LABS: HEPATITIS C VIRUS ABY INDEX 0.03 INDEX (<0.8)
[2025-10-15 15:51] LABS: TOTAL PROTEIN,RANDOM URINE 9.5 MG/DL (0.0-14.0)
[2025-10-15 16:28] LABS: Trichomonas vaginalis (AMP) NOT DETECTED (NEGATIVE)
[2025-10-15 16:52] LABS: GC DNA AMPLIFICATION NEGATIVE (NEGATIVE)
== END ==
LOC: M PLALAB 09:40
PROVIDERS: ATTEND Obstetrics & Gynecology
DX: Z34.90 Encounter for supervision of normal pregnancy, unspecified, unspecified trimester (principal)

== ENCOUNTER → 2025-10-16 | Outpatient (REF) | payer OTHER | LOC: M SFHCWAGY 14:57 | PROVIDERS: ATTEND Obstetrics & Gynecology | DX: Z34.80 Encounter for supervision of other normal pregnancy, unspecified trimester (principal) ==